=== PATIENT | female | born 1940 | race Caucasian/White ===

== ENCOUNTER 2022-02-11 14:56 | Inpatient (IN) | payer MEDICARE, BC, SELFPAY ==
[2022-02-11] VITALS (11 sets, daily range): BP systolic 123–156; BP diastolic 71–87; PULSE 67–78; RESP 16–20; TEMP 36.8–37.1; O2SAT 89–94; BMI 30.2; BMI 32.0
--- NOTE | 2022-02-11 15:29 | CRLHL7_ITS ---
For Patients: As a result of the Century Cures Act, medical imaging exams and procedure reports are released immediately into your electronic medical record. You may view this report before your referring provider. If you have questions, please contact your health care provider. INDICATION: Cough, hypoxia. TECHNIQUE: Chest 1 views. COMPARISON: Chest x-ray from 11/18/2021. FINDINGS: Lungs: Evaluation is limited by over penetration. No focal consolidation. Pleura: No pleural effusion or pneumothorax. Heart and Mediastinum: The cardiomediastinal silhouette is normal. The vessels are unremarkable. Stable hiatal hernia. Bones: Unremarkable. IMPRESSION: No acute cardiopulmonary disease. Dictated by Yousuf Hi MD @ 02/11/2022 4:14:36 PM (Electronically Signed)
--- NOTE | 2022-02-11 15:31 | ED_ITS ---
HPI - General Adult General Chief complaint: Shortness of Breath/Dyspnea Stated complaint: Cold Symptoms Low O2 Time Seen by Provider: 02/11/22 15:15 History of Present Illness HPI narrative: This 81-year-old female comes in from clinic where she presented for symptoms of cough and shortness of breath. She was noted to have oximetry at 85% on room air and was sent here for further evaluation and treatment. The patient states that symptoms began 3 days ago. She has had coughing and did have some diaphoresis last night. She did not measure her temperature. She states that she had pneumonia couple months ago and was sent home with antibiotic treatments. She improved and recovered from that. She lives alone at home. She quit smoking almost 40 years ago. Related Data Home Medications Medication Instructions Recorded Confirmed alendronate 70 mg tablet mg PO 02/11/22 amlodipine 5 mg tablet mg 02/11/22 anastrozole 1 mg tablet mg 02/11/22 ferrous sulfate 325 mg (65 mg mg 02/11/22 iron) tablet (FeroSul) levothyroxine 137 mcg tablet mcg 02/11/22 levothyroxine 150 mcg tablet mcg 02/11/22 mometasone-formoterol HFA 200 inhalation 02/11/22 mcg-5 mcg/actuation aerosol inhaler (Dulera) rivaroxaban 20 mg tablet (Xarelto) mg 02/11/22 triamcinolone acetonide 0.5 % applic topical 02/11/22 topical cream Allergies Allergy/AdvReac Type Severity Reaction Status Date / Time latex Allergy Intermediate Hives Uncoded 02/11/22 15:09 Review of Systems Status of ROS: Reports: 10 or more systems reviewed and unremarkable except as noted in History and below Narrative: Constitutional: No fevers, no weight gain or loss. Eyes: No discharge. No vision changes. HENT: No congestion, no sore throat, no ear pain. Cardiovascular: No chest pain, no palpitations. Respiratory: No wheezes. Coughing with shortness of breath. Gastrointestinal: No abdominal pain, no vomiting, no diarrhea. Genitourinary: No dysuria, no hematuria. Musculoskeletal: Normal range of motion. Skin: No rashes, no pruritis. Neurological: No dizziness, weakness, sensory change, speech change. Endo/Heme/Allergies: No bruising or bleeding. No polydipsia. Pysch: no suicidality, no anxiety, no insomnia. All other systems reviewed and are negative. [facility] Medical History (Updated 02/11/22 @ 18:48 by Chaparro Lanza MD) Arrhythmia Hypertension Hypothyroid Social History Smoking Status: Former smoker What tobacco products do you use: cigarettes Smoking quit date/years: >15 years ago Do you use any of these nicotine containing products: None Second hand tobacco smoke exposure: No How often do you have a drink containing alcohol: 2-4 times a month How often do you have six or more drinks on one occasion: Never AUDIT-C Alcohol total score: 2 Non-prescribed substance use: denies use service: No Exam Narrative: Exam Narrative: Constitutional: Well-developed, well-nourished, no acute distress. HEENT: Normocephalic, atraumatic. Neck: Normal range of motion. Nontender. Supple. Heart: Regular. No murmurs. Normal rate. Intact distal pulses. Lungs: Clear to auscultation. No chest discomfort. No wheezes, rhonchi, or rales. No use of accessory muscles for breathing. Abdomen: Normal bowel sounds. Nontender. No rebound tenderness. Genitalia: Deferred. Back: No midline tenderness. Normal range of motion. Extremities: Normal range of motion. No injury. Skin: Intact. No rash. Warm. No erythema or pallor. Neurologic: No altered sensation. No weakness. Alert and oriented. Psychiatric: No suicidality. No anxiety or depression. No insomnia. Nursing notes and vitals signs are reviewed. Const: Vital Signs, click to edit/add: Vital Signs - 24 hr 02/11/22 15:02 02/11/22 16:29 02/11/22 17:45 Temperature 98.7 F Pulse Rate [Pulse Oximeter] 78 67 Respiratory Rate 20 18 20 Blood Pressure [Ri ght Upper Arm] 156/75 H 150/71 H 123/86 Pulse Oximetry 89 92 92 Oxygen Delivery Me thod Room Air Nasal Cannula Nasal Cannula 02/11/22 18:30 Temperature Pulse Rate [Pulse Oximeter] 71 Respiratory Rate 20 Blood Pressure [Ri ght Upper Arm] 143/73 H Pulse Oximetry 93 Oxygen Delivery Me thod Nasal Cannula Course Vital Signs Vital signs: Initial Vital Signs Temperature 98.7 F 02/11/22 15:02 Temperature Source Temporal Artery Scan 02/11/22 15:02 Pulse Rate 78 02/11/22 15:02 Pulse Rhythm 02/11/22 15:02 Respiratory Rate 20 02/11/22 15:02 Blood Pressure 156/75 H 02/11/22 15:02 Blood Pressure Mean 102 02/11/22 15:02 Blood Pressure Position Supine 02/11/22 15:02 Pulse Oximetry 89 02/11/22 15:02 Oxygen Delivery Method 02/11/22 15:02 Vital Signs Temperature 98.7 F 02/11/22 15:02 Pulse Rate 78 02/11/22 15:02 Respiratory Rate 20 02/11/22 15:02 Blood Pressure 156/75 H 02/11/22 15:02 Pulse Oximetry 89 02/11/22 15:02 Oxygen Delivery Method 02/11/22 15:02 Temperature 98.7 F 02/11/22 15:02 Pulse Rate 71 02/11/22 18:30 Respiratory Rate 20 02/11/22 18:30 Blood Pressure 143/73 H 02/11/22 18:30 Pulse Oximetry 93 02/11/22 18:30 Oxygen Delivery Method 02/11/22 18:30 Medical Decision Making MDM Narrative Medical decision making narrative: This patient presents with cough and shortness of breath over the past 3 days. She has oximetry at 85% on room air. With nasal cannula oxygen at 2.5 Lher oximetry is around 90-92%. chest x-ray and labs returned with reassuring findings. the patient continues to benefit from nasal cannula oxygen. A CT scan of the chest without contrast was done which showed bilateral patchy opacities that are suggestive of an atypical infiltrate. I spoke with the hospital physician on-call, Dr. Osborn, who agrees to bring her into the hospital. He requested she receive IV Zosyn and Zithromax. Lab Data Labs: Lab Results 02/11/22 02/11/22 02/11/22 Range/Units 15:29 15:29 15:29 WBC 10.90 (4.50-11.00) K/uL RBC 4.28 (4.00-5.20) m/uL Hgb 13.3 (12.0-16.0) gm/dL Hct 40.9 (33.0-51.0) % MCV 96 (80-100) fL MCH 31 (26-34) pg MCHC 33 (32-36) gm/dL RDW Coeff of Chris 13.1 (11.5-15.5) % Plt Count 159 (140-440) K/uL Neut % (Auto) 79.2 H (42.0-72.0) % Lymph % (Auto) 10.3 L (20-44) % Mason % (Auto) 9.5 (0.0-11.0) % Eos % (Auto) 0.2 (0.0-7.0) % Baso % (Auto) 0.2 (0.0-3.0) % Neut # (Auto) 8.60 H (1.7-7.0) K/uL Lymph # (Auto) 1.10 (0.90-2.90) K/uL Mason # (Auto) 1.00 H (0.00-0.90) K/UL Eos # (Auto) 0.02 (0.00-0.50) K/uL Baso # (Auto) 0.02 (0.00-0.30) K/uL Abs Immat Gran (auto) 0.07 (0.00-0.30) K/uL D-Dimer Quant (PE/DVT) 0.27 (0.00-0.50) ug/ml Sodium 137 (135-149) mmol/L Potassium 3.7 (3.6-5.1) mmol/L Chloride 101 (96-114) mmol/L Carbon Dioxide 29 (20-32) mmol/L BUN 16 (7-30) mg/dL Creatinine 0.9 (0.5-1.5) mg/dL Estimated Creat Clear 33.86 Estimated GFR 65 ml/min Glucose 114 (60-115) mg/dL Lactate (0.5-1.9) mmol/L Calcium 8.9 (8.4-10.6) mg/dL SARS-CoV-2 (PCR) (Negative) Influenza Type A (PCR) (Negative) Influenza Type B (PCR) (Negative) POC Troponin I (0.01-0.04) ng/ml 02/11/22 02/11/22 02/11/22 Range/Units 15:29 15:29 15:40 WBC (4.50-11.00) K/uL RBC (4.00-5.20) m/uL Hgb (12.0-16.0) gm/dL Hct (33.0-51.0) % MCV (80-100) fL MCH (26-34) pg MCHC (32-36) gm/dL RDW Coeff of Chris (11.5-15.5) % Plt Count (140-440) K/uL Neut % (Auto) (42.0-72.0) % Lymph % (Auto) (20-44) % Mason % (Auto) (0.0-11.0) % Eos % (Auto) (0.0-7.0) % Baso % (Auto) (0.0-3.0) % Neut # (Auto) (1.7-7.0) K/uL Lymph # (Auto) (0.90-2.90) K/uL Mason # (Auto) (0.00-0.90) K/UL Eos # (Auto) (0.00-0.50) K/uL Baso # (Auto) (0.00-0.30) K/uL Abs Immat Gran (auto) (0.00-0.30) K/uL D-Dimer Quant (PE/DVT) (0.00-0.50) ug/ml Sodium (135-149) mmol/L Potassium (3.6-5.1) mmol/L Chloride (96-114) mmol/L Carbon Dioxide (20-32) mmol/L BUN (7-30) mg/dL Creatinine (0.5-1.5) mg/dL Estimated Creat Clear Estimated GFR ml/min Glucose (60-115) mg/dL Lactate 0.8 (0.5-1.9) mmol/L Calcium (8.4-10.6) mg/dL SARS-CoV-2 (PCR) Negative SARS-CoV-2 (Negative) Influenza Type A (PCR) Negative PCR FLU A (Negative) Influenza Type B (PCR) Negative PCR FLU B (Negative) POC Troponin I 0.00 L (0.01-0.04) ng/ml Imaging Data Chest x-ray: Radiologist's impression: No acute cardiopulmonary disease. CT scan - chest: Radiologist's impression: Patchy nodular opacities in the lower lobes have an appearance suggestive of atypical infection. Chronic changes or inflammatory etiologies are also possible. ECG Data Attestation: I personally reviewed and interpreted this ECG as follows: Interpretation: Normal sinus rhythm. Rate 66 bpm. There are no specific ST or T-wave abnormalities. Discharge Plan Discharge Clinical Impression: Hypoxia, Pneumonia Prescriptions: No Action anastrozole 1 mg tablet Label Comments: TAKE ONE TABLET BY MOUTH ONE TIME DAILY levothyroxine 137 mcg tablet Label Comments: TAKE ONE TABLET BY MOUTH ONE TIME DAILY BEFORE BREAKFAST triamcinolone acetonide 0.5 % cream TOPICAL Label Comments: apply topically to affected area (leg spots) twice daily until resolved. alendronate 70 mg tablet PO Label Comments: TAKE 1 TABLET BY MOUTH ONCE WEEKLY ON AN EMPTY STOMACH WITH A BIG GLASS OF WATER. DO NOT LIE DOWN FOR 60 MINUTES AFTERWARDS. amlodipine 5 mg tablet Label Comments: TAKE ONE TABLET BY MOUTH ONE TIME DAILY ferrous sulfate [FeroSul] 325 mg (65 mg iron) tablet Label Comments: TAKE 1 TABLET BY MOUTH EVERY OTHER DAY. levothyroxine 150 mcg tablet Label Comments: TAKE ONE TABLET BY MOUTH ONE TIME DAILY BEFORE BREAKFAST Dulera 200-5 mcg/actuation HFA aerosol inhaler INHALATION Label Comments: INHALE TWO PUFFS BY MOUTH TWICE DAILY Xarelto 20 mg tablet Label Comments: TAKE ONE TABLET BY MOUTH ONE TIME DAILY WITH EVENING MEAL. Follow Up/Referrals: Zelda Samuels DO [Primary Care Provider] -
[2022-02-11 16:01] LABS: Lactate* 0.8 mmol/L (0.5-1.9)
[2022-02-11 16:05] LABS: Basophils Absolute Auto 0.02 K/uL (0.00-0.30); Basophils Percent Auto 0.2 % (0.0-3.0); Eosinophils Absolute Auto 0.02 K/uL (0.00-0.50); Eosinophils Percent Auto 0.2 % (0.0-7.0); Hematocrit 40.9 % (33.0-51.0); Hemoglobin* 13.3 gm/dL (12.0-16.0); Immature Granulocytes Abs Auto 0.07 K/uL (0.00-0.30); Lymphocytes Percent Auto 10.3 % (20-44); Mean Corpuscular HGB Conc 33 gm/dL (32-36); Mean Corpuscular Hemoglobin 31 pg (26-34); Mean Corpuscular Volume 96 fL (80-100); Monocytes Percent Auto 9.5 % (0.0-11.0); Neutrophils Percent Auto 79.2 % (42.0-72.0); Platelet Count* 159 K/uL (140-440); RDW Coefficient of Variation % 13.1 % (11.5-15.5); Red Blood Count 4.28 m/uL (4.00-5.20)
[2022-02-11 16:12] LABS: Slide Review Reflex No
[2022-02-11 16:23] LABS: D Dimer Quantitative* 0.27 ug/ml (0.00-0.50)
[2022-02-11 16:24] LABS: Chloride* 101 mmol/L (96-114); Potassium* 3.7 mmol/L (3.6-5.1); Sodium* 137 mmol/L (135-149)
[2022-02-11 16:26] LABS: Creatinine* 0.9 mg/dL (0.5-1.5); Est. Creatinine Clearance* 33.86; Estimated Glomerular Filt Rate 65 ml/min
[2022-02-11 16:27] LABS: Blood Urea Nitrogen* 16 mg/dL (7-30); Calcium* 8.9 mg/dL (8.4-10.6); Carbon Dioxide* 29 mmol/L (20-32); Glucose* 114 mg/dL (60-115)
[2022-02-11 16:45] LABS: PCR FLU A Negative PCR FLU A (Negative); PCR FLU B Negative PCR FLU B (Negative)
[2022-02-11 16:58] LABS: SARS PCR* Negative SARS-CoV-2 (Negative)
--- NOTE | 2022-02-11 17:03 | CRLHL7_ITS ---
For Patients: As a result of the Century Cures Act, medical imaging exams and procedure reports are released immediately into your electronic medical record. You may view this report before your referring provider. If you have questions, please contact your health care provider. INDICATION: Hypoxia. TECHNIQUE: CT chest without contrast. Coronal and sagittal reformats were generated. COMPARISON: None. FINDINGS: Thyroid: Unremarkable. Thoracic lymph nodes: No enlarged supraclavicular, mediastinal, hilar, or axillary lymph nodes. Mediastinum and esophagus: Moderate-sized sliding hiatal hernia. Heart and vasculature: Unremarkable. Lungs: Patchy nodular densities primarily in the lower lobes. Mild bilateral cylindrical bronchiectasis. Pleura: Unremarkable. Chest wall: Unremarkable. Upper abdomen: No significant findings. Bones: Unremarkable for age. IMPRESSION: Patchy nodular opacities in the lower lobes have an appearance suggestive of atypical infection. Chronic changes or inflammatory etiologies are also possible. Please note that all CT scans at this facility use dose modulation, iterative reconstruction, and/or weight-based dosing when appropriate to reduce radiation dose to as low as reasonably achievable. Dictated by Yousuf Hi MD @ 02/11/2022 5:52:19 PM (Electronically Signed)
--- NOTE | 2022-02-11 19:08 | W.PC.EDHO ---
Primary Language: Preferred Language: Orientation Status: [x] Alert & Oriented [] Slight Confusion [] Known Dx Dementia Transfers By: [x] Assist of 1 [] Assist of 2 [] Lift Description of Symptoms ED Triage Present Problem Patient was seen at the [facility] today and Description was sent over for low oxygen saturation - 84-85%. She states that she does feel weak and tired with a deep cough, and sneezing. Denies fever, nausea and vomiting. States she had pneumonia 2 months ago. Female History Patient No IV Insertion/Site Date of IV Line Insertion [ 02/11/22 Right Antecubital] Oxygen Administration Pulse Oximetry 93 Pulse Oximetry 92 Pulse Oximetry 92 Pulse Oximetry 89 Oxygen Delivery Method Nasal Cannula Oxygen Delivery Method Nasal Cannula Oxygen Delivery Method Nasal Cannula Oxygen Delivery Method Room Air Cardiac Monitoring EKG Method Bedside
[2022-02-11] MEDS: PIPERACILLIN/TAZOBACTAM 3.375 GM in 0.9 % SODIUM CHLORIDE Mini-bag 100 ML IVPB (19:11)
[2022-02-11] MEDS: AZITHROMYCIN 100 MG/ML inj 500 MG IVPB (20:00)
--- NOTE | 2022-02-11 21:37 | P.IMHP_ITS ---
Hospitalist- H&P: HPI History of Present Illness Date Seen: 02/11/22 Chief complaint: Cold Symptoms Low O2 Narrative: Apryl Mckinney is a 81 year old female who presents to the ED with 2-3 days of cough and shortness of breath. She has a history of asthma and has been having more wheezing lately as well. No chest pain. Due to the cough and shortness of breath getting worse, the pt went to the clinic today and had an oxygen saturation of 85%. Pt was then transported to the emergenc room where inital chest x ray was unremarkable. D-dimer was negative but CT of the chest showed patchy nodular opacities in the lower lobes consistant with infection. EKG showed no acute abnormalities and troponin was negative. Blood cultures were collected, pt was placed on supplemental oxygen and treated with Zosyn plus Zithromax. She was subsequently admitted. Pt has had no fever. Review of Systems Status of ROS: Reports: 10 or more systems reviewed and unremarkable except as noted in History and below [facility] Medical History Asthma Atrial fibrillation Breast cancer Hypertension Hypothyroidism Osteoporosis Social History Highest level of school completed/degree received: high school graduate Smoking Status: Former smoker What tobacco products do you use: cigarettes Smoking quit date/years: >15 years ago Do you use any of these nicotine containing products: None Second hand tobacco smoke exposure: No How often do you have a drink containing alcohol: 2-4 times a month Alcohol type: beer How often do you have six or more drinks on one occasion: Never AUDIT-C Alcohol total score: 2 Non-prescribed substance use: denies use Caffeine: Yes service: No Meds Home Medications and Allergies Home Medications Medication Instructions Recorded Confirmed Type alendronate 70 mg tablet mg PO 02/11/22 History amlodipine 5 mg tablet mg 02/11/22 History anastrozole 1 mg tablet mg 02/11/22 History ferrous sulfate 325 mg (65 mg mg 02/11/22 History iron) tablet (FeroSul) levothyroxine 137 mcg tablet mcg 02/11/22 History levothyroxine 150 mcg tablet mcg 02/11/22 History mometasone-formoterol HFA 200 inhalation 02/11/22 History mcg-5 mcg/actuation aerosol inhaler (Dulera) rivaroxaban 20 mg tablet (Xarelto) mg 02/11/22 History triamcinolone acetonide 0.5 % applic topical 02/11/22 History topical cream Home Medication Comments: Reviewed Allergies Allergy/AdvReac Type Severity Reaction Status Date / Time latex Allergy Intermediate Hives Uncoded 02/11/22 15:09 Exam Narrative: Exam Narrative: EXAM GENERAL: Patient appears comfortable breathing oxygen per NC EYES: No scleral icterus. THYROID: no thyroid nodules or thyromegaly. LYMPH: No supraclavicular or cervical lymphadenopathy. SKIN: Visible skin seen during exam normal or with benign process only. EXT: No dependent lower extremity pedal edema. HEART: Regular rate and rhythm with no murmurs, rubs, or gallops. LUNGS: Mild expiratory wheezes with rhonchi in the bases ABD: Soft, non tender, non distended. PSYCH: Good eye contact, speech is not pressured. Const: Vital Signs, click to edit/add: Vital Signs - 24 hr 02/11/22 15:02 02/11/22 16:29 02/11/22 17:45 Temperature 98.7 F Pulse Rate [Pulse Oximeter] 78 67 Respiratory Rate 20 18 20 Blood Pressure [Ri ght Upper Arm] 156/75 H 150/71 H 123/86 Pulse Oximetry 89 92 92 Oxygen Delivery Me thod Room Air Nasal Cannula Nasal Cannula Oxygen Flow Rate 02/11/22 18:30 02/11/22 21:22 Temperature 98.2 F Pulse Rate [Pulse Oximeter] 71 Respiratory Rate 20 16 Blood Pressure [Ri ght Upper Arm] 143/73 H Pulse Oximetry 93 92 Oxygen Delivery Me thod Nasal Cannula Nasal Cannula Oxygen Flow Rate 5 Hospitalist - H&P: Result Labs Labs: Short CBC 02/11/22 Range/Units 15:29 WBC 10.90 (4.50-11.00) K/uL Hgb 13.3 (12.0-16.0) gm/dL Hct 40.9 (33.0-51.0) % Plt Count 159 (140-440) K/uL BMP 02/11/22 15:29 Sodium 137 Potassium 3.7 Chloride 101 Carbon Dioxide 29 BUN 16 Creatinine 0.9 Glucose 114 Calcium 8.9 Assessment and Plan Assessment and plan (1) Pneumonia: Status: Acute Assessment and Plan: Pt's blood has been cultured and she has been started on Zosyn plus Zithromax due to the atypical appearance on CT. I have requested ABGs. No signs of PE, unstable angina or CHF. Pt does have asthma which may complicate her progress. Will add Duonebs and Solumedrol. Pt is to be a full code. (2) Asthma: Status: Acute Assessment and Plan: Continue Dulera and add Duonebs and Solumedrol. (3) Atrial fibrillation: Status: Acute Assessment and Plan: Place pt on tele. Rate is controlled. Continue Riveroxaban. (4) Breast cancer: Status: Chronic Assessment and Plan: Pt will continue to follow up with Oncology as an outpt. (5) Osteoporosis: Status: Chronic Assessment and Plan: Continue to treat as an outpt (6) Hypertension: Status: Chronic Assessment and Plan: Pt's blood pressure stable. Will continue Amlodipine. (7) Hypothyroidism: Status: Chronic Assessment and Plan: Pt tells me that she recently had her Synthroid dose increased to 150 micrograms per day which we will continue.
[2022-02-11 22:06] LABS: ABG PCO2 41 mmHG (35-45); Base Excess ABG 2.2 mmol/L (-3.0-3.0); HCO3 ABG 27 mmol/L (21-28); Oxygen Saturation ABG 91 % (92-100); PO2 ABG 60.3 mmHG (80-105); TCO2 ABG 24 mmol/l (21-30); pH ABG 7.42 (7.35-7.45)
[2022-02-11] MEDS: METHYLPREDNISOLONE SOD SUCC 40 MG/ML IVP (22:26)
[2022-02-11] MEDS: IPRAT-ALBUT 0.5-2.5 MG/3 ML NEB 1 NEB IH (22:26)
[2022-02-12] VITALS (8 sets, daily range): BP systolic 116–136; BP diastolic 69–85; PULSE 59–93; RESP 16; TEMP 36.4–37; O2SAT 92–93
[2022-02-12] MEDS: PIPERACILLIN/TAZOBACTAM 3.375 GM in 0.9 % SODIUM CHLORIDE Mini-bag 100 ML IVPB ×4 (01:58→21:11)
[2022-02-12] MEDS: ALBUTEROL SULFATE 2.5 MG/3 ML VIAL.NEB NEB (01:58)
[2022-02-12] MEDS: IPRAT-ALBUT 0.5-2.5 MG/3 ML NEB 1 NEB IH ×3 (03:56→21:45)
--- NOTE | 2022-02-12 06:36 | PC.NURSE ---
Alert and oriented x4. admitted last night due to pneumonia. Vitals stable. Hard of hearing; hearing devices intentionally left at home. Upper and lower partial dentures present in the room. On 4L of Oxygen overnight. Nebs administered as per orders including PRN 's due to increased need for O2. Crackly lung sounds Ambulating self in the room independently. Denies pain. No further concerns noted
[2022-02-12 06:41] LABS: Hematocrit 39.4 % (33.0-51.0); Hemoglobin* 12.8 gm/dL (12.0-16.0); Immature Granulocytes Abs Auto 0.03 K/uL (0.00-0.30); Lymphocytes Percent Auto 3.6 % (20-44); Mean Corpuscular HGB Conc 33 gm/dL (32-36); Mean Corpuscular Hemoglobin 31 pg (26-34); Mean Corpuscular Volume 95 fL (80-100); Monocytes Percent Auto 1.5 % (0.0-11.0); Neutrophils Percent Auto 94.7 % (42.0-72.0); Platelet Count* 135 K/uL (140-440); RDW Coefficient of Variation % 12.7 % (11.5-15.5); Red Blood Count 4.13 m/uL (4.00-5.20); White Blood Count* 12.91 K/uL (4.50-11.00)
[2022-02-12 06:43] LABS: Slide Review Reflex No
[2022-02-12 07:05] LABS: Chloride* 104 mmol/L (96-114); Sodium* 137 mmol/L (135-149)
[2022-02-12 07:08] LABS: Blood Urea Nitrogen* 14 mg/dL (7-30); Carbon Dioxide* 23 mmol/L (20-32); Creatinine* 0.6 mg/dL (0.5-1.5); Est. Creatinine Clearance* 32.23; Estimated Glomerular Filt Rate 91 ml/min
[2022-02-12 07:09] LABS: Calcium* 8.3 mg/dL (8.4-10.6); Glucose* 150 mg/dL (60-115)
[2022-02-12 07:11] LABS: C Reactive Protein* 7.9 mg/dL (0.5-1.0)
--- NOTE | 2022-02-12 07:57 | P.IMPN_ITS ---
Progress Note: A&P Assessment and plan (1) Acute respiratory failure with hypoxia: Status: Acute Assessment and Plan: Taper supplemental oxygen as tolerated. RT referral placed. (2) Pneumonia: Problem details: Started on Zosyn and azithromycin 02/11 Status: Acute Assessment and Plan: Continue antibiotics. (3) Asthma: Problem details: Mild intermittent per history. Never hospitalized or intubated. Status: Acute Assessment and Plan: Given one dose of steroids on admission, will not continue steroids at this time given no evidence of wheezing (low threshold to restart if status were to change). Will continue home Mometasone-Formoterol inhaler. (4) Atrial fibrillation: Problem details: Paroxysmal Status: Acute Assessment and Plan: Sinus rhythm today. Continue rivaroxaban. (5) Hypertension: Status: Chronic Assessment and Plan: Continue home medications. (6) Hypothyroidism: Status: Chronic Assessment and Plan: Continue levothyroxine. Plan 81-year-old female, admitted for acute hypoxic respiratory failure in the setting of pneumonia. Continue antibiotics per above. Continue home medications for comorbidities. Patient would prefer to go home without supplemental oxygen; we will continue antibiotics and taper oxygen as tolerated. Rivaroxaban for prophylaxis. Discussed that she may want to see pulmonology as an outpatient after hospital stay, given her illness and history of asthma. Time Spent With Patient Total time spent: 35, greater than 50% on chart review and coordination of care Subjective Date Seen: 02/12/22 Interval history: Apryl is feeling better today. No chest pain. Dyspnea has improved. She is tolerating p.o. intake, has not ambulated much since admission. She continues to require supplemental oxygen. Exam Narrative: Exam Narrative: GEN: Alert and oriented, speaking in full sentences HEENT: Normal external ears, EOMIs bilaterally CV: RRR, No concerning murmurs, rubs, or gallops R: LCTA bilaterally without wheezing. Ext: wwp, no concerning edema Skin: No concerning skin lesions or rashes on exposed skin Neuro: Nonfocal Psych: Appropriate Const: Vital Signs, click to edit/add: Vital Signs - 24 hr 02/11/22 15:02 02/11/22 16:29 02/11/22 17:45 Temperature 98.7 F Pulse Rate Pulse Rate [Bilate ral Dorsalis Pedis ] Pulse Rate [Pulse Oximeter] 78 67 Respiratory Rate 20 18 20 Blood Pressure [Ri ght Arm] Blood Pressure [Ri ght Upper Arm] 156/75 H 150/71 H 123/86 Pulse Oximetry 89 92 92 Oxygen Delivery Me thod Room Air Nasal Cannula Nasal Cannula Oxygen Flow Rate 02/11/22 18:30 02/11/22 21:22 02/11/22 21:56 Temperature 98.2 F Pulse Rate Pulse Rate [Bilate ral Dorsalis Pedis ] Pulse Rate [Pulse Oximeter] 71 Respiratory Rate 20 16 16 Blood Pressure [Ri ght Arm] Blood Pressure [Ri ght Upper Arm] 143/73 H Pulse Oximetry 93 92 92 Oxygen Delivery Me thod Nasal Cannula Nasal Cannula Nasal Cannula Oxygen Flow Rate 5 5 02/11/22 21:56 02/11/22 22:40 02/11/22 22:53 Temperature 98.2 F Pulse Rate 73 Pulse Rate [Bilate ral Dorsalis Pedis ] Pulse Rate [Pulse Oximeter] 77 Respiratory Rate 16 16 Blood Pressure [Ri ght Arm] 149/87 H Blood Pressure [Ri ght Upper Arm] Pulse Oximetry 92 94 Oxygen Delivery Me thod Nasal Cannula Nasal Cannula Oxygen Flow Rate 5 4 02/11/22 22:55 02/11/22 23:00 02/11/22 23:36 Temperature 98.6 F Pulse Rate Pulse Rate [Bilate ral Dorsalis Pedis ] 77 Pulse Rate [Pulse Oximeter] 77 Respiratory Rate 16 16 Blood Pressure [Ri ght Arm] 150/81 H Blood Pressure [Ri ght Upper Arm] Pulse Oximetry 94 94 Oxygen Delivery Me thod Nasal Cannula Nasal Cannula Oxygen Flow Rate 4 4 02/12/22 03:00 Temperature 98.6 F Pulse Rate Pulse Rate [Bilate ral Dorsalis Pedis ] 68 Pulse Rate [Pulse Oximeter] Respiratory Rate 16 Blood Pressure [Ri ght Arm] 136/76 Blood Pressure [Ri ght Upper Arm] Pulse Oximetry 93 Oxygen Delivery Me thod Nasal Cannula Oxygen Flow Rate 4 Labs Labs: Laboratory Results - last 24 hr 02/11/22 02/11/22 02/11/22 15:29 15:29 15:29 WBC 10.90 RBC 4.28 Hgb 13.3 Hct 40.9 MCV 96 MCH 31 MCHC 33 RDW Coeff of Chris 13.1 Plt Count 159 Neut % (Auto) 79.2 H Lymph % (Auto) 10.3 L [place] % (Auto) 9.5 Eos % (Auto) 0.2 Baso % (Auto) 0.2 Neut # (Auto) 8.60 H Lymph # (Auto) 1.10 [place] # (Auto) 1.00 H Eos # (Auto) 0.02 Baso # (Auto) 0.02 Abs Immat Gran (auto) 0.07 D-Dimer Quant (PE/DVT) 0.27 ABG pH ABG pCO2 ABG pO2 ABG HCO3 ABG Total CO2 ABG O2 Saturation ABG Base Excess Sodium 137 Potassium 3.7 Chloride 101 Carbon Dioxide 29 BUN 16 Creatinine 0.9 Estimated Creat Clear 33.86 Estimated GFR 65 Glucose 114 Lactate Calcium 8.9 C-Reactive Protein SARS-CoV-2 (PCR) Influenza Type A (PCR) Influenza Type B (PCR) POC Troponin I 02/11/22 02/11/22 02/11/22 15:29 15:29 15:40 WBC RBC Hgb Hct MCV MCH MCHC RDW Coeff of Chris Plt Count Neut % (Auto) Lymph % (Auto) [place] % (Auto) Eos % (Auto) Baso % (Auto) Neut # (Auto) Lymph # (Auto) [place] # (Auto) Eos # (Auto) Baso # (Auto) Abs Immat Gran (auto) D-Dimer Quant (PE/DVT) ABG pH ABG pCO2 ABG pO2 ABG HCO3 ABG Total CO2 ABG O2 Saturation ABG Base Excess Sodium Potassium Chloride Carbon Dioxide BUN Creatinine Estimated Creat Clear Estimated GFR Glucose Lactate 0.8 Calcium C-Reactive Protein SARS-CoV-2 (PCR) Negative SARS-CoV-2 Influenza Type A (PCR) Negative PCR FLU A Influenza Type B (PCR) Negative PCR FLU B POC Troponin I 0.00 L 02/11/22 02/12/22 02/12/22 22:00 06:12 06:12 WBC 12.91 H RBC 4.13 Hgb 12.8 Hct 39.4 MCV 95 MCH 31 MCHC 33 RDW Coeff of Chris 12.7 Plt Count 135 L Neut % (Auto) 94.7 H Lymph % (Auto) 3.6 L [place] % (Auto) 1.5 Eos % (Auto) 0.0 Baso % (Auto) 0.0 Neut # (Auto) 12.20 H Lymph # (Auto) 0.50 L [place] # (Auto) 0.20 Eos # (Auto) 0.00 Baso # (Auto) 0.00 Abs Immat Gran (auto) 0.03 D-Dimer Quant (PE/DVT) ABG pH 7.42 ABG pCO2 41 ABG pO2 60.3 L ABG HCO3 27 ABG Total CO2 24 ABG O2 Saturation 91 L ABG Base Excess 2.2 Sodium 137 Potassium 4.0 Chloride 104 Carbon Dioxide 23 BUN 14 Creatinine 0.6 Estimated Creat Clear 32.23 Estimated GFR 91 Glucose 150 H Lactate Calcium 8.3 L C-Reactive Protein 7.9 H SARS-CoV-2 (PCR) Influenza Type A (PCR) Influenza Type B (PCR) POC Troponin I
[2022-02-12] MEDS: LEVOTHYROXINE 75 MCG TABLET 150 MCG PO (08:18)
[2022-02-12] MEDS: RIVAROXABAN 10 MG TABLET 20 MG PO (08:20)
[2022-02-12] MEDS: AMLODIPINE 5 MG TABLET PO (08:20)
--- NOTE | 2022-02-12 10:44 | RESP.RT ---
Patient currently on 5L NC and SATing 92%. Patient is not able to have a productive cough, but is working with the [employer] independently.
--- NOTE | 2022-02-12 18:48 | PC.NURSE ---
Patient requiring oxygen via nasal cannula this shift. Pt on 3-4 Liters of oxygen via NC and sating in the 90's. Patient up to the bathroom with SBA. Using Aer[employer] frequently throughout the day and coughing after treatment. Pt denies pain.
[2022-02-12] MEDS: AZITHROMYCIN 500 MG in 0.9 % SODIUM CHLORIDE 250 ml 250 ML 255 MG IVPB (19:58)
[2022-02-13] VITALS (8 sets, daily range): BP systolic 119–151; BP diastolic 70–89; PULSE 67–90; RESP 16; TEMP 36.4–37.2; O2SAT 90–93
[2022-02-13] MEDS: PIPERACILLIN/TAZOBACTAM 3.375 GM in 0.9 % SODIUM CHLORIDE Mini-bag 100 ML IVPB ×4 (01:38→20:37)
--- NOTE | 2022-02-13 04:45 | PC.NURSE ---
Pt rested well this night. Stable on feet. O2 Remained low 90s on 3L NC. Afebrile. LS slightly coarse
[2022-02-13] MEDS: LEVOTHYROXINE 75 MCG TABLET 150 MCG PO (06:36)
[2022-02-13 06:59] LABS: Basophils Percent Auto 0.1 % (0.0-3.0); Eosinophils Percent Auto 0.1 % (0.0-7.0); Hematocrit 36.9 % (33.0-51.0); Hemoglobin* 12.1 gm/dL (12.0-16.0); Immature Granulocytes Abs Auto 0.03 K/uL (0.00-0.30); Lymphocytes Percent Auto 6.4 % (20-44); Mean Corpuscular HGB Conc 33 gm/dL (32-36); Mean Corpuscular Hemoglobin 31 pg (26-34); Mean Corpuscular Volume 95 fL (80-100); Monocytes Percent Auto 6.7 % (0.0-11.0); Neutrophils Percent Auto 86.5 % (42.0-72.0); Platelet Count* 156 K/uL (140-440); RDW Coefficient of Variation % 12.8 % (11.5-15.5); Red Blood Count 3.87 m/uL (4.00-5.20)
[2022-02-13 07:08] LABS: Slide Review Reflex No
[2022-02-13 07:13] LABS: Chloride* 106 mmol/L (96-114); Sodium* 141 mmol/L (135-149)
[2022-02-13 07:14] LABS: Potassium* 3.4 mmol/L (3.6-5.1)
[2022-02-13 07:16] LABS: Blood Urea Nitrogen* 17 mg/dL (7-30); Carbon Dioxide* 29 mmol/L (20-32); Creatinine* 0.7 mg/dL (0.5-1.5); Est. Creatinine Clearance* 32.23; Estimated Glomerular Filt Rate 87 ml/min
[2022-02-13 07:17] LABS: Calcium* 8.1 mg/dL (8.4-10.6); Glucose* 103 mg/dL (60-115)
[2022-02-13] MEDS: RIVAROXABAN 10 MG TABLET 20 MG PO (09:27)
[2022-02-13] MEDS: AMLODIPINE 5 MG TABLET PO (09:28)
[2022-02-13] MEDS: IPRAT-ALBUT 0.5-2.5 MG/3 ML NEB 1 NEB IH ×3 (09:29→21:30)
[2022-02-13] MEDS: POTASSIUM BICARB 25 MEQ EFFERVESCENT TAB PO ×2 (11:59→15:21)
[2022-02-13] MEDS: BENZOCAINE/MENTHOL 1 EACH LOZENGE MUCOUS MEM ×2 (11:59→15:23)
--- NOTE | 2022-02-13 16:52 | P.IMPN_ITS ---
Progress Note: A&P Assessment and plan (1) Community acquired pneumonia: Problem details: Started on Zosyn and azithromycin 02/11 Status: Acute Assessment and Plan: 1. Continue with current antibiotic regimen (2) Acute respiratory failure with hypoxia: Status: Acute Assessment and Plan: 1. Continue with oxygen support (3) Asthma: Problem details: Mild intermittent per history. Never hospitalized or intubated. Status: Acute Assessment and Plan: 1. Continue with bronchodilator therapy. 2. Will add short course of burst corticosteroid therapy. (4) Atrial fibrillation: Problem details: Paroxysmal Status: Acute Assessment and Plan: 1. Continue with supportive efforts. (5) Hypothyroidism: Status: Chronic Assessment and Plan: 1. Continue with supportive efforts. (6) Hypertension: Status: Chronic Assessment and Plan: 1. Continue with supportive efforts. (7) Breast cancer: Status: Chronic (8) Osteoporosis: Status: Chronic Plan 1. Reviewed impression and plans with patient. Answered her questions. 2. Continue monitor closely. 3. Continue to work toward weaning her off of oxygen if at all possible. Subjective Time Seen by Provider: 10:30 Date Seen: 02/13/22 Interval history: 81-year-old woman with baseline asthma presents with community-acquired pneumonia and acute hypoxemic respiratory failure. Initially requiring oxygen supplementation at 6 liters/minute via nasal cannula continuously to maintain saturations of 90% or greater at rest. Now requiring 4 L of oxygen per minute via nasal cannula continues to maintain oxygen saturations of 90% or greater at rest. Feels about the same today as she did yesterday. Overall feels much improved compared to when she 1st presented. Tolerating oral intake. Denies nausea or vomiting. Denies orthostasis, lightheadedness, dizziness, syncope, or near syncope. Denies chest heaviness, pressure, tightness, or pain. Tolerating increased activities today. Exam Narrative: Exam Narrative: Alert, oriented to self, place, time, situation. Articulate. Cooperative. Friendly. Mood and affect are congruent. Lungs with bibasilar rales. Has scattered rhonchi and wheezing as well. Heart tones with regular rhythm, normal S1-S2. Abdomen with active bowel sounds, soft, nontender. Extremities without edema. Independent transfer, station, and gait. Skin is warm, dry, intact. Const: Vital Signs, click to edit/add: Vital Signs - 24 hr 02/12/22 19:34 02/12/22 22:08 02/12/22 22:44 Temperature 97.8 F 97.5 F L Pulse Rate 67 Pulse Rate [Bilate ral Dorsalis Pedis ] Pulse Rate [Pulse Oximeter] 62 66 Respiratory Rate 16 16 Blood Pressure [Ri ght Arm] 124/85 121/73 Pulse Oximetry 93 93 Oxygen Delivery Me thod Nasal Cannula Nasal Cannula Oxygen Flow Rate 3 3 02/12/22 22:46 02/13/22 02:38 02/13/22 08:50 Temperature 97.6 F Pulse Rate 67 Pulse Rate [Bilate ral Dorsalis Pedis ] 66 Pulse Rate [Pulse Oximeter] 66 68 Respiratory Rate 16 16 Blood Pressure [Ri ght Arm] 123/75 Pulse Oximetry 93 Oxygen Delivery Me thod Nasal Cannula Oxygen Flow Rate 3 02/13/22 07:00 02/13/22 07:00 02/13/22 11:00 Temperature 98.1 F 98.4 F Pulse Rate Pulse Rate [Bilate ral Dorsalis Pedis ] Pulse Rate [Pulse Oximeter] 76 76 76 Respiratory Rate 16 16 16 Blood Pressure [Ri ght Arm] 134/75 126/73 Pulse Oximetry 90 90 Oxygen Delivery Me thod Nasal Cannula Nasal Cannula Oxygen Flow Rate 4 4 02/13/22 15:00 02/13/22 15:00 Temperature 98.1 F Pulse Rate Pulse Rate [Bilate ral Dorsalis Pedis ] Pulse Rate [Pulse Oximeter] 90 90 Respiratory Rate 16 16 Blood Pressure [Ri ght Arm] 141/84 H Pulse Oximetry 90 Oxygen Delivery Me thod Nasal Cannula Oxygen Flow Rate 4 Labs Labs: Laboratory Results - last 24 hr 02/13/22 02/13/22 06:20 06:20 WBC 13.70 H RBC 3.87 L Hgb 12.1 Hct 36.9 MCV 95 MCH 31 MCHC 33 RDW Coeff of Chris 12.8 Plt Count 156 Neut % (Auto) 86.5 H Lymph % (Auto) 6.4 L [place] % (Auto) 6.7 Eos % (Auto) 0.1 Baso % (Auto) 0.1 Neut # (Auto) 11.90 H Lymph # (Auto) 0.90 [place] # (Auto) 0.90 Eos # (Auto) 0.00 Baso # (Auto) 0.00 Abs Immat Gran (auto) 0.03 Sodium 141 Potassium 3.4 L Chloride 106 Carbon Dioxide 29 BUN 17 Creatinine 0.7 Estimated Creat Clear 32.23 Estimated GFR 87 Glucose 103 Calcium 8.1 L
--- NOTE | 2022-02-13 19:06 | PC.NURSE ---
Patient still requiring 3-4 L of oxygen via nasal canula to maintain oxygen saturations above 90%. Pt still demonstrates a non-productive cough. Lozenge given to soothe throat and help with cough. Pt using Aerobika - coughing after use. Receiving scheduled nebs. Potassium replaced with effervescent tablets - patient tolerated well.
[2022-02-13] MEDS: AZITHROMYCIN 500 MG in 0.9 % SODIUM CHLORIDE 250 ml 250 ML 255 MG IVPB (19:18)
[2022-02-13] MEDS: guaiFENesin 100 MG/ML CUP PO (20:39)
[2022-02-14] VITALS (13 sets, daily range): BP systolic 105–138; BP diastolic 51–82; PULSE 65–93; RESP 18; TEMP 36.6–37.3; O2SAT 88–94
[2022-02-14] MEDS: PIPERACILLIN/TAZOBACTAM 3.375 GM in 0.9 % SODIUM CHLORIDE Mini-bag 100 ML IVPB ×4 (01:37→20:12)
--- NOTE | 2022-02-14 05:45 | PC.NURSE ---
Pt had to have O2 turned up to 4L overnight to maintain Sats @ 90.
[2022-02-14] MEDS: LEVOTHYROXINE 75 MCG TABLET 150 MCG PO (06:15)
[2022-02-14] MEDS: guaiFENesin 100 MG/ML CUP PO ×3 (06:19→22:18)
[2022-02-14 07:02] LABS: HCO3 VBG 29 mmol/L (21-28); PCO2 VBG 44 mmHG (40-50); PO2 VBG 67.6 mmHG (25-47); pH VBG 7.432 (7.32-7.43)
[2022-02-14 07:10] LABS: Hematocrit 34.8 % (33.0-51.0); Hemoglobin* 11.2 gm/dL (12.0-16.0); Mean Corpuscular HGB Conc 32 gm/dL (32-36); Mean Corpuscular Hemoglobin 31 pg (26-34); Mean Corpuscular Volume 95 fL (80-100); Platelet Count* 155 K/uL (140-440); Red Blood Count 3.66 m/uL (4.00-5.20); White Blood Count* 10.12 K/uL (4.50-11.00)
[2022-02-14 07:17] LABS: Slide Review Reflex No
[2022-02-14 07:32] LABS: Magnesium* 2.1 mg/dL (1.5-2.6)
[2022-02-14 07:50] LABS: Procalcitonin* 0.07 ng/mL (<0.50)
[2022-02-14] MEDS: BENZOCAINE/MENTHOL 1 EACH LOZENGE MUCOUS MEM ×2 (08:07→11:42)
[2022-02-14] MEDS: IPRAT-ALBUT 0.5-2.5 MG/3 ML NEB 1 NEB IH ×3 (08:08→20:12)
[2022-02-14] MEDS: RIVAROXABAN 10 MG TABLET 20 MG PO (08:08)
[2022-02-14 08:12] LABS: NT Pro B Type NatriureticPept* 179 PG/mL (0-450)
[2022-02-14] MEDS: FUROSEMIDE 10 MG/ML inj 20 MG IVP (09:27)
[2022-02-14] MEDS: METOPROLOL TARTRATE 50 MG TABLET PO ×2 (09:27→20:16)
[2022-02-14] MEDS: METOPROLOL TARTRATE 1 MG/ML inj 5 MG IVP (09:41)
--- NOTE | 2022-02-14 15:12 | PM.IMPN1 ---
Progress Note: A&P Assessment and plan (1) Community acquired pneumonia: Problem details: Started on Zosyn and azithromycin 02/11 Status: Acute Assessment and Plan: 1. Continue with IV antibiotics for now. 2. Eventually switched to oral antibiotics. (2) Acute respiratory failure with hypoxia: Status: Acute Assessment and Plan: 1. Oxygen needs appear to be increased today relative to yesterday. Most likely this represents mucus plugging. Differential certainly includes pulmonary embolism, worsening of her pulmonary infiltrative process, heart failure exacerbation, etc.. 2. Will change her oxygen delivery modality to high-flow oxygen with humidification. 3. Consider reimaging with chest CT if warranted. 4. It appears as though she with this new AFib RVR that she is in mild heart failure as well. Will order an echocardiogram. (3) Asthma: Problem details: Mild intermittent per history. Never hospitalized or intubated. Status: Acute Assessment and Plan: 1. Well controlled at this time. (4) Atrial fibrillation: Problem details: Paroxysmal Status: Acute Assessment and Plan: 1. She is not on any rate controlling agent. 2. Metoprolol 5 mg IV x1 dose. 3. Metoprolol 25 mg orally twice daily. 4. Continue with rivaroxaban anticoagulation. (5) Hypothyroidism: Status: Chronic Assessment and Plan: 1. Continue with supportive supplementation. (6) Hypertension: Status: Chronic Assessment and Plan: 1. Stop amlodipine. 2. Change to metoprolol 25 mg p.o. b.i.d.. Consider dose adjustment as warranted. (7) Breast cancer: Status: Chronic (8) Osteoporosis: Status: Chronic Plan 1. Reviewed above with patient. 2. Patient agreeable to above stated plans and recommendations. Time Spent With Patient Total time spent: 40 minutes Subjective Time Seen by Provider: 08:00 Date Seen: 02/14/22 Interval history: Hospital day 4. 81-year-old woman with baseline asthma presented with community-acquired pneumonia and acute hypoxemic respiratory failure. Initially requiring oxygen supplementation at 6 liters/minute via nasal cannula continuously to maintain saturations of 90% or greater at rest. Now requiring 4 L of oxygen per minute via nasal cannula continues to maintain oxygen saturations of 85 % or greater at rest. Feels about the same today as she did yesterday. Tolerating oral intake. Denies nausea or vomiting. Denies orthostasis, lightheadedness, dizziness, syncope, or near syncope. Denies chest heaviness, pressure, tightness, or pain. Tolerating increased activities today. Able to cough but not able to expectorates. Had some sleep last night. Exam Narrative: Exam Narrative: Resting oxygen saturations on 4 L of oxygen per minute via nasal cannula are in mid to upper 80s. When she talks her saturations drop down into the low 80s. Appears comfortable, no acute distress. Alert, oriented to self, place, time, situation. Articulate, cooperative, friendly. Mood and affect are congruent. Midline trachea. Supple neck. No obvious jugular venous distention, hepatojugular reflux, or carotid bruits. Lungs with bibasilar rales but without wheezing or rhonchi today. Heart tones are chaotic today in tachycardic. Abdomen with active bowel sounds, soft, nontender. No CVA tenderness. Mild pretibial edema bilaterally. Skin is intact. Independent in transfer, station, and gait. Const: Vital Signs, click to edit/add: Vital Signs - 24 hr 02/13/22 19:00 02/13/22 22:46 02/13/22 22:47 Temperature 97.9 F 98.9 F Pulse Rate [Pulse Oximeter] 80 80 79 Respiratory Rate 16 16 16 Blood Pressure [Ri ght Arm] 151/89 H 119/70 Pulse Oximetry 92 90 Oxygen Delivery Me thod Nasal Cannula Nasal Cannula Oxygen Flow Rate 3.5 4 Fraction of Inspir ed Oxygen 02/14/22 02:17 02/14/22 07:00 02/14/22 07:00 Temperature 99.2 F 98.1 F Pulse Rate [Pulse Oximeter] 72 93 93 Respiratory Rate 18 18 18 Blood Pressure [Ri ght Arm] 127/75 138/82 Pulse Oximetry 90 88 Oxygen Delivery Me thod Nasal Cannula Nasal Cannula Oxygen Flow Rate 4 4 Fraction of Inspir ed Oxygen 02/14/22 10:40 02/14/22 11:00 02/14/22 12:38 Temperature Pulse Rate [Pulse Oximeter] Respiratory Rate 18 Blood Pressure [Ri ght Arm] Pulse Oximetry 93 Oxygen Delivery Me thod High Flow Nasal Ca nnula Oxygen Flow Rate 30 30 Fraction of Inspir ed Oxygen 80 80 80 Labs Labs: Laboratory Results - last 24 hr 02/14/22 02/14/22 02/14/22 06:35 06:35 06:35 WBC 10.12 RBC 3.66 L Hgb 11.2 L Hct 34.8 MCV 95 MCH 31 MCHC 32 Plt Count 155 VBG pH 7.432 H VBG pCO2 44 VBG pO2 67.6 H VBG HCO3 29 H Potassium 4.0 Magnesium 2.1 NT-Pro-B Natriuret Pep 179 Procalcitonin 0.07
[2022-02-14] MEDS: LACTOBACILLUS ACIDOPHILUS 1 TABLET 2 TAB PO (15:20)
--- NOTE | 2022-02-14 19:29 | PC.NURSE ---
Patient placed on High flow nasal cannula this shift. Initially started on 30 liters and 80% fiO2 - now weaned to 30L and 70% fiO2. Pt received dose of lasix this am - up to the bathroom frequently with SBA. Echo performed this shift. Tolerated IV antibiotics in right wrist. Cough medicine given to help with cough.
[2022-02-14] MEDS: AZITHROMYCIN 250 MG TABLET 500 MG PO (20:16)
[2022-02-15] VITALS (15 sets, daily range): BP systolic 104–127; BP diastolic 62–76; PULSE 56–98; RESP 18–24; TEMP 36.5–37.4; O2SAT 91–95
[2022-02-15] MEDS: PIPERACILLIN/TAZOBACTAM 3.375 GM in 0.9 % SODIUM CHLORIDE Mini-bag 100 ML IVPB ×4 (01:31→20:07)
--- NOTE | 2022-02-15 05:01 | PC.NURSE ---
Pt rested well this night. On High Flow 30/70 to maintain sats in the low 90s. Up IND in room. Reporting zero pain. Oriented x3. LS coarse crackles. Afebrile.
[2022-02-15] MEDS: LEVOTHYROXINE 75 MCG TABLET 150 MCG PO (06:09)
[2022-02-15] MEDS: LACTOBACILLUS ACIDOPHILUS 1 TABLET 2 TAB PO ×3 (08:15→17:23)
[2022-02-15] MEDS: METOPROLOL TARTRATE 50 MG TABLET PO ×2 (09:55→20:08)
[2022-02-15] MEDS: IPRAT-ALBUT 0.5-2.5 MG/3 ML NEB 1 NEB IH ×4 (09:56→20:08)
[2022-02-15] MEDS: RIVAROXABAN 10 MG TABLET 20 MG PO (09:56)
--- NOTE | 2022-02-15 10:03 | CRLHL7_ITS ---
For Patients: As a result of the Cures Act, medical imaging exams and procedure reports are released immediately into your electronic medical record. You may view this report before your referring provider. If you have questions, please contact your health care provider. Indication: Worsening hypoxia, mucous plugging and chronic bronchitis Technique: Volumetric multidetector CT images of the chest were obtained without the administration of IV contrast. Comparison: CT chest without contrast February 11, 2022 Findings: The thoracic inlet and thyroid gland are unremarkable. The thoracic aorta is nonaneurysmal. There are reactive, enlarged mediastinal and hilar lymph nodes. There is no axillary adenopathy. There is moderate central bronchial thickening with marked mucoid impaction of the right greater than left lower lobe bronchi. There is dense airspace opacification of the right greater than left lower lobes commensurate with developing multifocal infiltrates. There is biapical pleural thickening. There is demonstration of a small pulmonary nodule within the peripheral right upper lobe on series 2, image 36 measuring 5.1 millimeters. The partially visualized upper abdominal viscera are within normal limits. The thoracic vertebral body heights are grossly maintained with moderate to severe degenerative disc disease. There is no significant spondylolisthesis or displaced fracture. Impression: Marked central bronchial thickening and mucoid impaction of the right greater than left lower lobe bronchi with extensive airspace opacities predominantly within the right greater than left lower lobes likely representing infiltrates Please note that all CT scans at this facility use dose modulation, iterative reconstruction, and/or weight-based dosing when appropriate to reduce radiation dose to as low as reasonably achievable. Dictated by Darci Ulloa MD @ 02/15/2022 11:21:31 AM (Electronically Signed)
[2022-02-15 11:21] LABS: HCO3 VBG 29 mmol/L (21-28); Lactate* 0.9 mmol/L (0.5-1.9); PCO2 VBG 44 mmHG (40-50); PO2 VBG 62.6 mmHG (25-47); pH VBG 7.437 (7.32-7.43)
[2022-02-15 11:24] LABS: Hematocrit 35.4 % (33.0-51.0); Hemoglobin* 11.6 gm/dL (12.0-16.0); Mean Corpuscular HGB Conc 33 gm/dL (32-36); Mean Corpuscular Hemoglobin 31 pg (26-34); Mean Corpuscular Volume 95 fL (80-100); Platelet Count* 181 K/uL (140-440); Red Blood Count 3.74 m/uL (4.00-5.20); White Blood Count* 11.86 K/uL (4.50-11.00)
[2022-02-15 11:30] LABS: Slide Review Reflex No
[2022-02-15 11:48] LABS: Potassium* 3.5 mmol/L (3.6-5.1)
[2022-02-15 11:51] LABS: Creatinine* 0.6 mg/dL (0.5-1.5); Est. Creatinine Clearance* 32.23; Estimated Glomerular Filt Rate 91 ml/min
[2022-02-15 12:01] LABS: NT Pro B Type NatriureticPept* 795 PG/mL (0-450)
[2022-02-15] MEDS: guaiFENesin 100 MG/ML CUP PO (15:13)
--- NOTE | 2022-02-15 15:17 | PM.IMPN1 ---
Progress Note: A&P Assessment and plan (1) Community acquired pneumonia: Problem details: Started on Zosyn and azithromycin 02/11 Status: Acute Assessment and Plan: 1. Doing well on current IV antibiotic regimen. (2) Acute respiratory failure with hypoxia: Status: Acute Assessment and Plan: 1. Better controlled on the high-flow oxygen at 30 liters/minute with an FiO2 of 70%. 2. Marked mucoid plugging of bronchi bilaterally right greater than left consistent with persistent hypoxemia. (3) Asthma: Problem details: Mild intermittent per history. Never hospitalized or intubated. Status: Acute Assessment and Plan: 1. Continue with empiric bronchodilators as presently instituted. (4) Atrial fibrillation: Problem details: Paroxysmal Status: Acute Assessment and Plan: 1. Currently in normal sinus rhythm. (5) Hypothyroidism: Status: Chronic Assessment and Plan: 1. Continue with supportive efforts. (6) Hypertension: Status: Chronic Assessment and Plan: 1. Continue supportive efforts. (7) Breast cancer: Status: Chronic (8) Osteoporosis: Status: Chronic Plan 1. Reviewed my impressions with the patient. 2. Continue with all current efforts. 3. Anticipate patient will need a minimum of 2-3 more nights before she might possibly be able to be discharged. 4. Encouraged increased activity. Time Spent With Patient Total time spent: 40 minutes Subjective Time Seen by Provider: 09:00 Date Seen: 02/15/22 Interval history: Hospital day 5. 81-year-old woman with baseline asthma presented with community-acquired pneumonia and acute hypoxemic respiratory failure. Initially requiring oxygen supplementation at 6 liters/minute via nasal cannula continuously to maintain saturations of 90% or greater at rest. Presently on high-flow oxygen with FiO2 of 70% at 30 liters/minute. Overall feels much improved today compared to yesterday. Tolerating oral intake. Denies nausea or vomiting. Denies orthostasis, lightheadedness, dizziness, syncope, or near syncope. Denies chest heaviness, pressure, tightness, or pain. Tolerating increased activities today. Able to cough but not able to expectorates. Had much better sleep last night. Exam Narrative: Exam Narrative: Alert, oriented to self, place, time, situation. Bibasilar rales, right more so than left. No wheezing or rhonchi. Heart tones with regular rhythm, normal S1-S2. Abdomen with active bowel sounds, soft, nontender. Extremities without edema. Independent transfer, station, and gait. Skin is warm, dry, intact. Const: Vital Signs, click to edit/add: Vital Signs - 24 hr 02/14/22 16:00 02/14/22 18:00 02/14/22 19:00 Temperature 98.2 F Pulse Rate [Pulse Oximeter] 65 Respiratory Rate 18 Blood Pressure [Ri ght Arm] 128/51 L Pulse Oximetry 92 Oxygen Delivery Me thod High Flow Nasal Ca nnula Oxygen Flow Rate 30 Fraction of Inspir ed Oxygen 75 70 70 02/14/22 20:00 02/14/22 22:00 02/14/22 22:45 Temperature 97.9 F Pulse Rate [Pulse Oximeter] 66 Respiratory Rate 18 Blood Pressure [Ri ght Arm] 105/66 Pulse Oximetry 94 Oxygen Delivery Me thod High Flow Nasal Ca nnula Oxygen Flow Rate Fraction of Inspir ed Oxygen 70 70 70 02/14/22 22:47 02/15/22 00:00 02/15/22 01:41 Temperature Pulse Rate [Pulse Oximeter] 66 Respiratory Rate 18 Blood Pressure [Ri ght Arm] Pulse Oximetry Oxygen Delivery Me thod Oxygen Flow Rate Fraction of Inspir ed Oxygen 70 70 02/15/22 02:08 02/15/22 03:54 02/15/22 05:17 Temperature 98 F Pulse Rate [Pulse Oximeter] 60 Respiratory Rate 18 Blood Pressure [Ri ght Arm] 123/62 Pulse Oximetry 91 Oxygen Delivery Me thod High Flow Nasal Ca nnula Oxygen Flow Rate 30 Fraction of Inspir ed Oxygen 70 70 70 02/15/22 08:20 02/15/22 07:00 02/15/22 07:00 Temperature 99.3 F Pulse Rate [Pulse Oximeter] 85 Respiratory Rate 24 24 Blood Pressure [Ri ght Arm] 127/74 Pulse Oximetry 91 Oxygen Delivery Me thod High Flow Nasal Ca nnula Oxygen Flow Rate 30 30 Fraction of Inspir ed Oxygen 70 70 02/15/22 10:00 Temperature Pulse Rate [Pulse Oximeter] Respiratory Rate Blood Pressure [Ri ght Arm] Pulse Oximetry Oxygen Delivery Me thod Oxygen Flow Rate Fraction of Inspir ed Oxygen 70 Documenting provider has reviewed patient's vital signs: yes Labs Labs: Laboratory Results - last 24 hr 02/15/22 02/15/22 02/15/22 11:17 11:17 11:17 WBC 11.86 H RBC 3.74 L Hgb 11.6 L Hct 35.4 MCV 95 MCH 31 MCHC 33 Plt Count 181 VBG pH 7.437 H VBG pCO2 44 VBG pO2 62.6 H VBG HCO3 29 H Potassium 3.5 L Creatinine 0.6 Estimated Creat Clear 32.23 Estimated GFR 91 Lactate 0.9 NT-Pro-B Natriuret Pep [address] scan - chest: Attestation: I have reviewed the pertinent imaging results. Radiologist's impression: Marked central bronchial thickening and mucoid impaction of the right greater than left lower lobe bronchi with extensive airspace opacities predominantly within the right greater than left lower lobes likely representing infiltrates
--- NOTE | 2022-02-15 15:47 | PC.NURSE ---
shift [id number] Pt this shift, independent in room, calm and cooperative. Maintained SpO2 89-94% on high flow. CT done today of lungs, awaiting results. Tolerating reg diet but states that appetite is low. Coarse crackles heard throughout. Requests a shower this evening.
--- NOTE | 2022-02-15 18:44 | PC.NURSE ---
shift note: vss stable. pt denies chest pain or pressure. pt on hiflo with cont sats @ 93%. pt tolerated having shower with 5L pnc in place during activity. IV patent
[2022-02-15] MEDS: AZITHROMYCIN 250 MG TABLET 500 MG PO (20:08)
[2022-02-16] VITALS (13 sets, daily range): BP systolic 113–122; BP diastolic 59–65; PULSE 54–71; RESP 14–28; TEMP 36.6–37.6; O2SAT 91–98
[2022-02-16] MEDS: PIPERACILLIN/TAZOBACTAM 3.375 GM in 0.9 % SODIUM CHLORIDE Mini-bag 100 ML IVPB ×4 (02:15→20:18)
--- NOTE | 2022-02-16 05:42 | PC.NURSE ---
Shift 7p-7a: Pt. AOx4, following commands, on Hi-Flow oxygen at 30L and FiO2 at 65%, pt. satting 92%. Pt. ambulating independently to toilet, voiding w/o difficulty. LT arm limb alert in place, RT FA IV SL. Pt. receiving IV abx, states she feels much better than yesterday. Pt. denies headache, dizziness, N/V. LS coarse crackles in bases, non-productive cough.
[2022-02-16] MEDS: LEVOTHYROXINE 75 MCG TABLET 150 MCG PO (06:23)
[2022-02-16] MEDS: LACTOBACILLUS ACIDOPHILUS 1 TABLET 2 TAB PO ×3 (07:51→17:47)
[2022-02-16] MEDS: guaiFENesin 100 MG/ML CUP PO ×2 (08:58→12:55)
[2022-02-16] MEDS: IPRAT-ALBUT 0.5-2.5 MG/3 ML NEB 1 NEB IH ×4 (09:56→20:18)
[2022-02-16] MEDS: RIVAROXABAN 10 MG TABLET 20 MG PO (09:56)
[2022-02-16] MEDS: METOPROLOL TARTRATE 50 MG TABLET PO ×2 (09:56→09:59)
[2022-02-16 10:09] LABS: Potassium* 3.2 mmol/L (3.6-5.1)
[2022-02-16 10:11] LABS: Hematocrit 34.6 % (33.0-51.0); Hemoglobin* 11.3 gm/dL (12.0-16.0); Mean Corpuscular HGB Conc 33 gm/dL (32-36); Mean Corpuscular Hemoglobin 31 pg (26-34); Mean Corpuscular Volume 95 fL (80-100); Platelet Count* 178 K/uL (140-440); Red Blood Count 3.66 m/uL (4.00-5.20); White Blood Count* 8.25 K/uL (4.50-11.00)
[2022-02-16 10:12] LABS: Slide Review Reflex No
[2022-02-16 10:31] LABS: C.Difficile Negative (Negative); CDIFFEPI 027 PRESUMPTIVE NEGATIVE (Negative)
--- NOTE | 2022-02-16 15:34 | PC.NURSE ---
shift [id number] Pt this shift sitting up in [facility]. RT moved high flow from 30-70-36 to 20-55-36, pt margot well at 95%. Robitussin Q4H prn for thick secretions. Non-productive moist cough persists. Walked the kennedy x 2 with portable O2 nasal cannula at 6L/min, sats remained at 90%. No tray ordered for lunch d/t low appetite but stated she would order an early dinner. Scant amount of edema bilat calfs, non pitting. Frequent and urgent loose stool this morning, stool sample came back negative for c.diff. Encouraged to pick yogurt at meal times and cont the probiotic.
--- NOTE | 2022-02-16 17:58 | P.IMPN_ITS ---
Progress Note: A&P Assessment and plan (1) Community acquired pneumonia: Problem details: Started on Zosyn and azithromycin 02/11 Status: Acute (2) Acute respiratory failure with hypoxia: Status: Acute (3) Asthma: Problem details: Mild intermittent per history. Never hospitalized or intubated. Status: Acute (4) Atrial fibrillation: Problem details: Paroxysmal Status: Acute (5) Hypothyroidism: Status: Chronic (6) Hypertension: Status: Chronic (7) Breast cancer: Status: Chronic (8) Osteoporosis: Status: Chronic Plan 1. Continue with current treatment efforts. 2. Will attempt to initiate oxygen titration downward as early as tomorrow. 3. Consider switching to oral antibiotic tomorrow. 4. Continue with other supportive efforts. 5. Patient agreeable to above stated plans and recommendations. Time Spent With Patient Total time spent: 20 minutes Subjective Time Seen by Provider: 09:00 Date Seen: 02/16/22 Interval history: Hospital day 6. 81-year-old woman with baseline asthma presented with community-acquired pneumonia and acute hypoxemic respiratory failure. Initially requiring oxygen supplementation at 6 liters/minute via nasal cannula continuously to maintain sa turations of 90% or greater at rest. Initially improved. Subsequently condition worsen. Now on high-flow humidified oxygen with an FiO2 of 0.7 at 30 liters/minute and generally doing much better. Overall feels much improved today compared to yesterday. Tolerating oral intake. Denies nausea or vomiting. Denies orthostasis, lightheadedness, dizziness, syncope, or near syncope. Denies chest heaviness, pressure, tightness, or pain. Tolerating increased movements in her room today. Able to cough but not able to expectorates. Had much better sleep last night. Exam Narrative: Exam Narrative: Appears comfortable on current regimen. No acute distress. Hard of hearing. Articulate. Cooperative. Alert, oriented to self, place, time, situation. Mood and affect are congruent. Lungs actually sound a little clear although she still has bibasilar rales. No wheezing or rhonchi. No CVA tenderness. Heart tones with regular rhythm, normal S1-S2. Abdomen with active bowel sounds, soft, nontender. Extremities without edema. Independent transfer, station, and gait. No focal motor neurologic deficits. No tremor, asterixis, or ataxia. Skin is warm, dry, intact. Const: Vital Signs, click to edit/add: Vital Signs - 24 hr 02/15/22 18:00 02/15/22 19:00 02/15/22 20:00 Temperature 98.7 F Pulse Rate [Pulse Oximeter] 98 Respiratory Rate 22 Blood Pressure [Ri ght Arm] 118/76 Pulse Oximetry 93 Oxygen Delivery Me thod High Flow Nasal Ca nnula Oxygen Flow Rate 30 Fraction of Inspir ed Oxygen 70 70 70 02/15/22 22:00 02/15/22 23:00 02/15/22 23:00 Temperature 98.3 F Pulse Rate [Pulse Oximeter] 71 71 Respiratory Rate 22 22 Blood Pressure [Ri ght Arm] 118/69 Pulse Oximetry 95 Oxygen Delivery Me thod High Flow Nasal Ca nnula Oxygen Flow Rate 30 Fraction of Inspir ed Oxygen 70 70 02/15/22 23:49 02/16/22 02:00 02/16/22 03:00 Temperature 98.2 F Pulse Rate [Pulse Oximeter] 64 Respiratory Rate 20 Blood Pressure [Ri ght Arm] 118/60 Pulse Oximetry 95 Oxygen Delivery Me thod High Flow Nasal Ca nnula Oxygen Flow Rate 30 Fraction of Inspir ed Oxygen 70 70 65 02/16/22 04:00 02/16/22 05:55 02/16/22 07:00 Temperature 99.7 F H Pulse Rate [Pulse Oximeter] 62 Respiratory Rate 14 Blood Pressure [Ri ght Arm] 113/62 Pulse Oximetry 94 Oxygen Delivery Me thod High Flow Nasal Ca nnula Oxygen Flow Rate 30 Fraction of Inspir ed Oxygen 65 65 70 02/16/22 08:00 02/16/22 10:00 02/16/22 11:00 Temperature 98.6 F Pulse Rate [Pulse Oximeter] 54 L Respiratory Rate 18 Blood Pressure [Ri ght Arm] 119/64 Pulse Oximetry 98 Oxygen Delivery Me thod High Flow Nasal Ca nnula Oxygen Flow Rate 30 Fraction of Inspir ed Oxygen 70 70 70 02/16/22 11:46 02/16/22 13:00 02/16/22 15:00 Temperature Pulse Rate [Pulse Oximeter] Respiratory Rate Blood Pressure [Ri ght Arm] Pulse Oximetry Oxygen Delivery Me thod Oxygen Flow Rate 20 Fraction of Inspir ed Oxygen 50 55 55 02/16/22 15:00 02/16/22 15:00 02/16/22 17:00 Temperature 98.6 F Pulse Rate [Pulse Oximeter] 64 64 Respiratory Rate 28 H 28 H Blood Pressure [Ri ght Arm] 115/59 L Pulse Oximetry 97 Oxygen Delivery Me thod High Flow Nasal Ca nnula Oxygen Flow Rate 20 Fraction of Inspir ed Oxygen 55 55 Labs Labs: Laboratory Results - last 24 hr 02/16/22 02/16/22 02/16/22 09:13 09:35 09:35 WBC 8.25 RBC 3.66 L Hgb 11.3 L Hct 34.6 MCV 95 MCH 31 MCHC 33 Plt Count 178 Potassium 3.2 L Stl C.difficile Tox PCR Negative St C. diff Tox Epid 027 PRESUMPTIVE NEGATIVE
[2022-02-16] MEDS: AZITHROMYCIN 250 MG TABLET 500 MG PO (20:18)
[2022-02-17] VITALS (13 sets, daily range): BP systolic 120–134; BP diastolic 60–68; PULSE 60–69; RESP 24–28; TEMP 36.6–37.3; O2SAT 91–96
[2022-02-17] MEDS: guaiFENesin 100 MG/ML CUP PO ×3 (00:28→13:42)
[2022-02-17] MEDS: PIPERACILLIN/TAZOBACTAM 3.375 GM in 0.9 % SODIUM CHLORIDE Mini-bag 100 ML IVPB ×4 (02:09→20:20)
[2022-02-17] MEDS: LEVOTHYROXINE 75 MCG TABLET 150 MCG PO (07:42)
--- NOTE | 2022-02-17 07:53 | PC.NURSE ---
15-07: indep in room. Calls appropriately. No c/o pain. HFNC at 20/55, sats 91-96%. Occasional cough, guaifenesin given at HS, aerobika use encouraged. VSS. Afebrile.
[2022-02-17] MEDS: METOPROLOL TARTRATE 50 MG TABLET PO ×2 (08:39→20:20)
[2022-02-17] MEDS: RIVAROXABAN 10 MG TABLET 20 MG PO (08:39)
[2022-02-17] MEDS: IPRAT-ALBUT 0.5-2.5 MG/3 ML NEB 1 NEB IH ×4 (08:39→20:21)
[2022-02-17] MEDS: LACTOBACILLUS ACIDOPHILUS 1 TABLET 2 TAB PO ×3 (09:36→17:28)
[2022-02-17 12:05] LABS: Potassium* 3.7 mmol/L (3.6-5.1)
--- NOTE | 2022-02-17 17:03 | P.IMPN_ITS ---
Progress Note: A&P Assessment and plan (1) Community acquired pneumonia: Problem details: Started on Zosyn and azithromycin 02/11 Status: Acute Assessment and Plan: 1. Will stop Zosyn. 2. Stop azithromycin. 3. Will treat with Augmentin orally. (2) Acute respiratory failure with hypoxia: Status: Acute Assessment and Plan: 1. Continue with high-flow oxygen efforts to assist with meeting oxygen needs as well as humidification to address the mucus plugging. 2. Will work with respiratory therapy tomorrow to try to wean her off of high- flow oxygen if at all possible. (3) Asthma: Problem details: Mild intermittent per history. Never hospitalized or intubated. Status: Acute Assessment and Plan: 1. Not problematic at this time. (4) Atrial fibrillation: Problem details: Paroxysmal Status: Acute Assessment and Plan: 1. Weight rate controlled. 2. Anticoagulated. (5) Hypothyroidism: Status: Chronic Assessment and Plan: 1. Continue supportive efforts. (6) Hypertension: Status: Chronic Assessment and Plan: 1. Continue supportive efforts. (7) Breast cancer: Status: Chronic (8) Osteoporosis: Status: Chronic Plan 1. Patient agreeable to above stated plans and recommendations. Time Spent With Patient Total time spent: 20 minutes. Subjective Time Seen by Provider: 09:00 Date Seen: 02/17/22 Interval history: Hospital day 7. 81-year-old woman with baseline asthma presented with community-acquired pneumonia and acute hypoxemic respiratory failure. Initially requiring oxygen supplementation at 6 liters/minute via nasal cannula continuously to maintain saturations of 90% or greater at rest. Initially improved. Subsequently condition worsen. Now on high-flow humidified oxygen with an FiO2 of 0.5 at 20 liters/minute and generally doing much better. Overall feels much improved today compared to yesterday. Tolerating oral intake. Denies nausea or vomiting. Denies orthostasis, lightheadedness, dizziness, syncope, or near syncope. Denies chest heaviness, pressure, tightness, or pain. Tolerating increased movements in her room today. Able to cough but not able to expectorates. Slept well last night. Exam Narrative: Exam Narrative: Appears comfortable. No acute distress. Not actively coughing when I walk in the room any longer. Alert, oriented to self, place, time, situation. Mood and affect are congruent. Friendly cooperative. No JVD or hepatojugular reflux. Still has some rales bilaterally. No wheezing or rhonchi. Not using accessory muscles of respiration. Heart tones with regular rhythm, normal S1-S2. Abdomen with active bowel sounds, soft nontender. Extremities without edema. Independent transfer station and gait. Skin is warm, dry, intact. Const: Vital Signs, click to edit/add: Vital Signs - 24 hr 02/16/22 19:00 02/16/22 19:00 02/16/22 20:33 Temperature Pulse Rate [Pulse Oximeter] 71 Respiratory Rate 28 H Blood Pressure [Ri ght Arm] 114/65 Pulse Oximetry 95 Oxygen Delivery Me thod High Flow Nasal Ca nnula Oxygen Flow Rate 20 Fraction of Inspir ed Oxygen 55 55 55 02/16/22 23:00 02/16/22 23:00 02/16/22 23:00 Temperature 97.9 F Pulse Rate [Pulse Oximeter] 62 62 Respiratory Rate 24 28 H Blood Pressure [Ri ght Arm] 122/60 Pulse Oximetry 91 Oxygen Delivery Me thod High Flow Nasal Ca nnula Oxygen Flow Rate 20 Fraction of Inspir ed Oxygen 55 55 02/17/22 00:41 02/17/22 02:28 02/17/22 03:00 Temperature 97.9 F Pulse Rate [Pulse Oximeter] 62 Respiratory Rate 28 H Blood Pressure [Ri ght Arm] 128/60 Pulse Oximetry 94 Oxygen Delivery Me thod High Flow Nasal Ca nnula Oxygen Flow Rate 20 Fraction of Inspir ed Oxygen 55 55 55 02/17/22 04:40 02/17/22 07:00 02/17/22 07:00 Temperature Pulse Rate [Pulse Oximeter] Respiratory Rate 24 Blood Pressure [Ri ght Arm] Pulse Oximetry Oxygen Delivery Me thod Oxygen Flow Rate Fraction of Inspir ed Oxygen 55 55 02/17/22 07:00 02/17/22 09:00 02/17/22 11:00 Temperature 98.2 F Pulse Rate [Pulse Oximeter] 69 Respiratory Rate 24 Blood Pressure [Ri ght Arm] 131/61 Pulse Oximetry 94 Oxygen Delivery Me thod High Flow Nasal Ca nnula Oxygen Flow Rate 20 Fraction of Inspir ed Oxygen 55 55 55 02/17/22 11:00 02/17/22 13:00 Temperature 99.2 F Pulse Rate [Pulse Oximeter] 60 Respiratory Rate 27 H Blood Pressure [Ri ght Arm] 120/67 Pulse Oximetry 94 Oxygen Delivery Me thod High Flow Nasal Ca nnula Oxygen Flow Rate 20 Fraction of Inspir ed Oxygen 55 55 Documenting provider has reviewed patient's vital signs: yes Labs Labs: Laboratory Results - last 24 hr 02/17/22 11:41 Potassium 3.7 Magnesium 2.0
--- NOTE | 2022-02-17 19:26 | PC.NURSE ---
shift [id number] pt this shift calm and cooperative. Walked the kennedy x1. Tolerating high-flow, skin intact. Ate most of all meals. Educated on the use of probiotics and their benefits.
[2022-02-17] MEDS: AZITHROMYCIN 250 MG TABLET 500 MG PO (20:20)
[2022-02-18] VITALS (13 sets, daily range): BP systolic 129–148; BP diastolic 68–76; PULSE 57–75; RESP 18–28; TEMP 36.2–37; O2SAT 90–97
[2022-02-18] MEDS: PIPERACILLIN/TAZOBACTAM 3.375 GM in 0.9 % SODIUM CHLORIDE Mini-bag 100 ML IVPB ×2 (01:53→07:52)
[2022-02-18] MEDS: LEVOTHYROXINE 75 MCG TABLET 150 MCG PO (06:18)
--- NOTE | 2022-02-18 07:46 | PC.NURSE ---
shift unremarkable. pt continues to cough up sputum when able to. VSS. Afebrile.
[2022-02-18] MEDS: LACTOBACILLUS ACIDOPHILUS 1 TABLET 2 TAB PO ×3 (07:51→17:40)
[2022-02-18] MEDS: guaiFENesin 100 MG/ML CUP PO ×2 (07:52→14:03)
[2022-02-18] MEDS: METOPROLOL TARTRATE 50 MG TABLET PO ×2 (09:51→20:32)
[2022-02-18] MEDS: IPRAT-ALBUT 0.5-2.5 MG/3 ML NEB 1 NEB IH ×4 (09:51→20:32)
[2022-02-18] MEDS: RIVAROXABAN 10 MG TABLET 20 MG PO (09:51)
--- NOTE | 2022-02-18 11:25 | PM.IMPN1 ---
Progress Note: A&P Assessment and plan (1) Community acquired pneumonia: Problem details: Started on Zosyn and azithromycin 02/11 Status: Acute Assessment and Plan: 1. Stab Zosyn and azithromycin today. 2. Augmentin 875/125, 1 tab p.o. b.i.d. for 3-5 more days. (2) Acute respiratory failure with hypoxia: Status: Acute Assessment and Plan: 1. Discussed with our respiratory therapist. 2. Continue with efforts to try to slowly wean off of high-flow oxygen delivery system and switch to low-flow oxygen delivery system if possible. (3) Asthma: Problem details: Mild intermittent per history. Never hospitalized or intubated. Status: Acute (4) Atrial fibrillation: Problem details: Paroxysmal Status: Acute (5) Hypothyroidism: Status: Chronic (6) Hypertension: Status: Chronic (7) Breast cancer: Status: Chronic (8) Osteoporosis: Status: Chronic Plan 1. Answered patient's questions to her satisfaction. 2. Revealed plans and recommendations with patient. She is agreeable. Time Spent With Patient Total time spent: 20 minutes Subjective Time Seen by Provider: 08:00 Date Seen: 02/18/22 Interval history: Hospital day 8. 81-year-old woman with baseline asthma presented with community-acquired pneumonia and acute hypoxemic respiratory failure. Initially requiring oxygen supplementation at 6 liters/minute via nasal cannula continuously to maintain saturations of 90% or greater at rest. Initially improved. Subsequently condition worsened. Now on high-flow humidified oxygen with an FiO2 of 0.45 at 20 liters/minute and generally doing much better. Overall feels much improved today compared to yesterday. Tolerating oral intake. Denies nausea or vomiting. Appetite is slowly improving. Denies orthostasis, lightheadedness, dizziness, syncope, or near syncope. Denies chest heaviness, pressure, tightness, or pain. Tolerating increased movements in her room today. Able to cough but not able to expectorates. Slept well last night. Exam Narrative: Exam Narrative: Appears comfortable. No acute distress. Hard of hearing. Friendly, cooperative. Mood and affect are congruent. Alert, oriented to self, place, time, situation. Neck exam with no JVD or hepatojugular reflux. Lung exam has bibasilar scattered rhonchi and rales without wheezing. Heart tones with regular rhythm, normal S1 S2. Abdomen with active bowel sounds, soft, nontender. Extremities without edema. Independent transfer, station, and gait. Skin is warm, dry, intact. Aside from the chronic bilateral hearing deficit, no other acute focal motor neurologic deficits. Const: Vital Signs, click to edit/add: Vital Signs - 24 hr 02/17/22 13:00 02/17/22 15:00 02/17/22 15:00 Temperature Pulse Rate [Pulse Oximeter] Respiratory Rate 24 Blood Pressure [Ri ght Arm] Pulse Oximetry Oxygen Delivery Me thod Oxygen Flow Rate Fraction of Inspir ed Oxygen 55 55 02/17/22 15:00 02/17/22 17:00 02/17/22 19:00 Temperature 98.8 F Pulse Rate [Pulse Oximeter] 69 Respiratory Rate 24 Blood Pressure [Ri ght Arm] 123/66 Pulse Oximetry 91 Oxygen Delivery Me thod High Flow Nasal Ca nnula Oxygen Flow Rate 20 Fraction of Inspir ed Oxygen 55 55 55 02/17/22 19:00 02/17/22 21:00 02/17/22 23:00 Temperature 98.3 F Pulse Rate [Pulse Oximeter] 64 Respiratory Rate 24 Blood Pressure [Ri ght Arm] 134/63 Pulse Oximetry 95 Oxygen Delivery Me thod High Flow Nasal Ca nnula Oxygen Flow Rate 20 Fraction of Inspir ed Oxygen 55 55 55 02/17/22 23:00 02/17/22 23:00 02/18/22 00:25 Temperature 98.2 F Pulse Rate [Pulse Oximeter] 61 61 Respiratory Rate 28 H 28 H Blood Pressure [Ri ght Arm] 131/68 Pulse Oximetry 92 Oxygen Delivery Me thod High Flow Nasal Ca nnula Oxygen Flow Rate 20 Fraction of Inspir ed Oxygen 55 55 02/18/22 02:22 02/18/22 02:22 02/18/22 02:24 Temperature 98.2 F Pulse Rate [Pulse Oximeter] 62 Respiratory Rate 28 H Blood Pressure [Ri ght Arm] 148/76 H Pulse Oximetry 95 Oxygen Delivery Me thod High Flow Nasal Ca nnula Oxygen Flow Rate 20 Fraction of Inspir ed Oxygen 55 55 55 02/18/22 09:30 Temperature Pulse Rate [Pulse Oximeter] Respiratory Rate Blood Pressure [Ri ght Arm] Pulse Oximetry Oxygen Delivery Me thod Oxygen Flow Rate 20 Fraction of Inspir ed Oxygen 45 Documenting provider has reviewed patient's vital signs: yes Labs Labs: Laboratory Results - last 24 hr 02/17/22 11:41 Potassium 3.7 Magnesium 2.0
--- NOTE | 2022-02-18 15:14 | PC.NURSE ---
shift [id number] pt this shift calm and cooperative. Walk the kennedy x1 with SB assist for O2 tank and tubing. High-flow decreased today to 20-45-36. Pt a little concerned about needing O2 at home. Soup Mixer discussed the need for short term use at times while lungs continue to heal. Also discussed using an at home pulse oximeter that can be bought at [employer] or [facility] pharmacy to help pt know when and when not O2 may be needed. Appetitie cont to be low but pt is picking healthy menu items and eating 50-75%. Guaifenesin 100mg given x2 PRN for loosening secretions. IV ABX DC'd and oral ABX started for this evening.
[2022-02-18] MEDS: AMOXICILLIN/CLAVULANATE 875 mg/125 mg TABLET PO (17:40)
[2022-02-19] VITALS (14 sets, daily range): BP systolic 118–138; BP diastolic 61–74; PULSE 59–97; RESP 16–20; TEMP 36.2–37; O2SAT 90–93
[2022-02-19] MEDS: guaiFENesin 100 MG/ML CUP PO (02:31)
--- NOTE | 2022-02-19 06:51 | PC.NURSE ---
Shift note: HFNC 20L O240%, sats 90-91%. Pt is afebrile, ambulates independently, no c/o plain
[2022-02-19 06:56] LABS: HCO3 VBG 31 mmol/L (21-28); PCO2 VBG 48 mmHG (40-50); PO2 VBG 65.5 mmHG (25-47)
[2022-02-19 07:09] LABS: Hemoglobin* 11.1 gm/dL (12.0-16.0)
[2022-02-19 07:17] LABS: Potassium* 3.8 mmol/L (3.6-5.1)
[2022-02-19] MEDS: AMOXICILLIN/CLAVULANATE 875 mg/125 mg TABLET PO ×2 (08:27→17:52)
[2022-02-19] MEDS: RIVAROXABAN 10 MG TABLET 20 MG PO (08:27)
[2022-02-19] MEDS: METOPROLOL TARTRATE 50 MG TABLET PO ×2 (08:27→20:56)
[2022-02-19] MEDS: LACTOBACILLUS ACIDOPHILUS 1 TABLET 2 TAB PO ×3 (08:27→17:52)
[2022-02-19] MEDS: LEVOTHYROXINE 75 MCG TABLET 150 MCG PO (08:28)
[2022-02-19] MEDS: IPRAT-ALBUT 0.5-2.5 MG/3 ML NEB 1 NEB IH ×4 (08:28→20:56)
--- NOTE | 2022-02-19 15:15 | PM.IMPN1 ---
Progress Note: A&P Assessment and plan (1) Community acquired pneumonia: Problem details: Initially on IV Zosyn and p.o. azithromycin. Complete oral Augmentin on Tuesday02/21/2022. Status: Acute (2) Acute respiratory failure with hypoxia: Problem details: CT scans of the chest revealed diffuse mucus plugging Status: Acute Assessment and Plan: 1. Continue with high-flow, humidified O2 for now. 2. Consider switching to low-flow oxygen system and monitoring her on the same for a minimum of 24 hours before considering discharge home. (3) Asthma: Problem details: Mild intermittent per history. Never hospitalized or intubated. Status: Acute (4) Atrial fibrillation: Problem details: Paroxysmal Status: Acute (5) Hypothyroidism: Status: Chronic (6) Hypertension: Status: Chronic (7) Breast cancer: Status: Chronic (8) Osteoporosis: Status: Chronic Plan 1. Reviewed with patient. Answered her questions. 2. Continue with current efforts at slowly reducing her oxygen administration and monitoring her response. Time Spent With Patient Total time spent: 30 minutes Subjective Time Seen by Provider: 09:30 Date Seen: 02/19/22 Interval history: Hospital day 9. 81-year-old woman with baseline asthma presented with community-acquired pneumonia and acute hypoxemic respiratory failure. Initially requiring oxygen supplementation at 6 liters/minute via nasal cannula continuously to maintain saturations of 90% or greater at rest. Initially improved. Subsequently condition worsened. Now on high-flow humidified oxygen with an FiO2 of 0.30 at 20 liters/minute and generally doing much better. Feels well. Tolerating oral intake. Denies nausea or vomiting. Appetite is slowly improving. Denies orthostasis, lightheadedness, dizziness, syncope, or near syncope. Denies chest heaviness, pressure, tightness, or pain. Tolerating increased movements in her room. Less frequent and intense coughing. Slept well last night. Exam Narrative: Exam Narrative: Alert, oriented to self, place, time, situation. Hard of hearing, chronic. Bibasilar rales in lungs. Scattered rhonchi. No wheezing. Heart tones with regular rhythm, normal S1-S2. Abdomen with active bowel sounds, soft, nontender. Extremities without edema. Skin is warm, dry, intact. Independent transfer, station, and gait. Const: Vital Signs, click to edit/add: Vital Signs - 24 hr 02/18/22 16:00 02/18/22 17:00 02/18/22 19:00 Temperature 97.2 F L Pulse Rate [Pulse Oximeter] 63 Respiratory Rate 18 Blood Pressure [Ri ght Arm] 132/73 Pulse Oximetry 94 Oxygen Delivery Me thod High Flow Nasal Ca nnula Oxygen Flow Rate 15 Fraction of Inspir ed Oxygen 45 45 45 02/18/22 20:00 02/18/22 21:00 02/18/22 23:00 Temperature 98.6 F Pulse Rate [Pulse Oximeter] 75 Respiratory Rate 18 Blood Pressure [Ri ght Arm] 143/68 H Pulse Oximetry 94 Oxygen Delivery Me thod High Flow Nasal Ca nnula Oxygen Flow Rate 15 Fraction of Inspir ed Oxygen 45 45 40 02/18/22 23:00 02/19/22 00:00 02/19/22 01:00 Temperature 98.3 F Pulse Rate [Pulse Oximeter] 61 Respiratory Rate 20 20 Blood Pressure [Ri ght Arm] 130/70 Pulse Oximetry 90 Oxygen Delivery Me thod High Flow Nasal Ca nnula Oxygen Flow Rate Fraction of Inspir ed Oxygen 40 02/19/22 03:00 02/19/22 04:00 02/19/22 05:00 Temperature Pulse Rate [Pulse Oximeter] 97 Respiratory Rate 20 Blood Pressure [Ri ght Arm] Pulse Oximetry 91 Oxygen Delivery Me thod High Flow Nasal Ca nnula Oxygen Flow Rate Fraction of Inspir ed Oxygen 40 40 02/19/22 09:28 02/19/22 08:00 02/19/22 08:00 Temperature 97.5 F L Pulse Rate [Pulse Oximeter] 65 65 Respiratory Rate 20 20 Blood Pressure [Ri ght Arm] 127/69 Pulse Oximetry 92 Oxygen Delivery Me thod High Flow Nasal Ca nnula Oxygen Flow Rate 20 20 Fraction of Inspir ed Oxygen 30 35 02/19/22 11:00 02/19/22 13:00 02/19/22 12:00 Temperature 97.2 F L Pulse Rate [Pulse Oximeter] 67 Respiratory Rate 20 Blood Pressure [Ri ght Arm] 118/67 Pulse Oximetry 91 Oxygen Delivery Me thod High Flow Nasal Ca nnula Oxygen Flow Rate 20 Fraction of Inspir ed Oxygen 35 25 25 Documenting provider has reviewed patient's vital signs: yes Labs Labs: Laboratory Results - last 24 hr 02/19/22 02/19/22 02/19/22 06:25 06:25 06:25 Hgb 11.1 L VBG pH 7.420 VBG pCO2 48 VBG pO2 65.5 H VBG HCO3 31 H Potassium 3.8
[2022-02-19] MEDS: SODIUM CHLORIDE 0.9 % (FLUSH) 10 ML SYRINGE 5 ML IVF (20:58)
--- NOTE | 2022-02-19 22:29 | PC.NURSE ---
Shift [id number]- Patient denies pain throughout shift. She remains on HFNC with saturations ~or>90%, using 3L O2 NC to ambulate to bathroom. Occasional cough, sometimes productive. She is using aerobika and IS independently, particularly aerobika.
[2022-02-20] VITALS (11 sets, daily range): BP systolic 112–146; BP diastolic 63–97; PULSE 59–74; RESP 15–20; TEMP 36.3–36.7; O2SAT 90–94
[2022-02-20] MEDS: guaiFENesin 100 MG/ML CUP PO (01:25)
--- NOTE | 2022-02-20 05:52 | PC.NURSE ---
Shift note: HFNC at 20L 30%O2, she sats around 90-91%. Pt ambulates independently, has frequent wet cough but unable to bring up the sputum.
[2022-02-20] MEDS: LEVOTHYROXINE 75 MCG TABLET 150 MCG PO (06:30)
[2022-02-20] MEDS: RIVAROXABAN 10 MG TABLET 20 MG PO (09:57)
[2022-02-20] MEDS: AMOXICILLIN/CLAVULANATE 875 mg/125 mg TABLET PO ×2 (09:58→17:27)
[2022-02-20] MEDS: METOPROLOL TARTRATE 50 MG TABLET PO ×2 (09:58→21:16)
[2022-02-20] MEDS: SODIUM CHLORIDE 0.9 % (FLUSH) 10 ML SYRINGE 5 ML IVF ×2 (09:59→21:22)
[2022-02-20] MEDS: LACTOBACILLUS ACIDOPHILUS 1 TABLET 2 TAB PO ×2 (09:59→17:27)
[2022-02-20] MEDS: IPRAT-ALBUT 0.5-2.5 MG/3 ML NEB 1 NEB IH ×4 (10:00→21:16)
--- NOTE | 2022-02-20 13:08 | RESP.RT ---
Weaned Pt off of HFNC, using1-3 liters of oxygen depending on activity. She does recover quickly if she does desaturate. Plan is to not restart HFNC. If pt tolerates low flow oxygen, RT will qualify her for home oxygen tomorrow. She is using PEP therapy and IS independently.
--- NOTE | 2022-02-20 14:04 | P.IMPN_ITS ---
Progress Note: A&P Assessment and plan (1) Community acquired pneumonia: Problem details: Initially on IV Zosyn and p.o. azithromycin. Complete oral Augmentin on Tuesday02/21/2022. Status: Acute Assessment and Plan: Clinically improving (2) Acute respiratory failure with hypoxia: Problem details: CT scans of the chest revealed diffuse mucus plugging Status: Acute (3) Asthma: Problem details: Mild intermittent per history. Never hospitalized or intubated. Status: Acute (4) Atrial fibrillation: Problem details: Paroxysmal Status: Acute (5) Hypertension: Status: Chronic Plan Will discontinue high-flow oxygen. Will see if she can maintain oxygen saturations on nasal cannula with a plan to discharge tomorrow on nasal cannula oxygen. Time Spent With Patient Total time spent: Total time spent today is 40 minutes, 30 minutes in coordination of care discussing with patient and other providers management of pneumonia and hypoxia. Subjective Date Seen: 02/20/22 Interval history: 81-year-old female seen in followup of hypoxic respiratory failure due to bilateral pneumonia. Patient reports continuing to have clinical improvement. She feels like her breathing is better. This morning she was taken off of high- flow nasal cannula and reports that she feels like she is doing fine on regular nasal cannula at 2 L per minute. She did not have any fever. She still has some cough. No chest pain. She reports her appetite is beginning to come back. She has no other concerns today. Exam Narrative: Exam Narrative: She is alert and appears in no distress. Speech is normal. She is oriented to her circumstances. She is pleasant and cooperative. Oropharynx is normal. Neck is supple without mass or adenopathy. Respirations are clear to auscultation except for a few basilar crackles more on the right than the left. She has diminished breath sounds but no wheezing. Mildly prolonged expiratory phase. Cardiovascular: S1, S2, regular rate and rhythm. No murmur gallop or rub. Abdomen: Bowel sounds active. Abdomen is soft without tenderness or mass. Extremities with trace edema in the ankles. No rash. Const: Vital Signs, click to edit/add: Vital Signs - 24 hr 02/19/22 18:18 02/19/22 15:15 02/19/22 15:15 Temperature 98.2 F Pulse Rate [Pulse Oximeter] 59 L Respiratory Rate 18 Blood Pressure [Ri ght Arm] 124/66 Pulse Oximetry 91 Oxygen Delivery Me thod High Flow Nasal Ca nnula Oxygen Flow Rate 20 20 Fraction of Inspir ed Oxygen 25 25 25 02/19/22 17:04 02/19/22 19:12 02/19/22 20:00 Temperature 98.6 F Pulse Rate [Pulse Oximeter] 70 Respiratory Rate 16 Blood Pressure [Ri ght Arm] 138/74 Pulse Oximetry 91 Oxygen Delivery Me thod High Flow Nasal Ca nnula Oxygen Flow Rate 20 Fraction of Inspir ed Oxygen 25 25 25 02/19/22 23:00 02/19/22 23:00 02/20/22 01:00 Temperature 98.2 F Pulse Rate [Pulse Oximeter] 70 Respiratory Rate 18 Blood Pressure [Ri ght Arm] 134/61 Pulse Oximetry 91 Oxygen Delivery Me thod High Flow Nasal Ca nnula Oxygen Flow Rate Fraction of Inspir ed Oxygen 30 30 02/20/22 03:00 02/20/22 03:00 02/20/22 05:00 Temperature Pulse Rate [Pulse Oximeter] 74 Respiratory Rate 16 Blood Pressure [Ri ght Arm] Pulse Oximetry 92 Oxygen Delivery Me thod High Flow Nasal Ca nnula Oxygen Flow Rate Fraction of Inspir ed Oxygen 30 30 02/20/22 13:06 Temperature Pulse Rate [Pulse Oximeter] Respiratory Rate 15 Blood Pressure [Ri ght Arm] Pulse Oximetry Oxygen Delivery Me thod Nasal Cannula Oxygen Flow Rate 2 Fraction of Inspir ed Oxygen Documenting provider has reviewed patient's vital signs: yes
--- NOTE | 2022-02-20 15:25 | PC.NURSE ---
Pt's Hi Flow settings adjusted at initial assessment 20L/25% Fio2/36degrees. Eval by Dr. Moreno. Hi Flow discontinued by Osiris Weems RT. Pt place on 3L/nc, she has been tapered to 2L/nc and is currently on 1L/NC with sats maintained in the low 90's. UAL in room. Please see eMar for medications given to Apryl on day shift. Report to oncoming shift RN.
--- NOTE | 2022-02-20 18:45 | PC.NURSE ---
Shift [id number]- Patient remains on 1L O2 with saturations in low 90s%. She denies pain. She is sitting up in chair. Occasional wet sounding cough that she states bring stuff up, but just goes back down again. She is using aerobika and IS independently.
[2022-02-21 03:00] VITALS: BP 134/69; PULSE 65; RESP 20; TEMP 36.6; O2SAT 90
--- NOTE | 2022-02-21 05:48 | PC.NURSE ---
[id number]: Patient pleasant and cooperative. Denies pain. Denies SOB. Intermittent productive throughout shift. Independent. Uses Aerobika and IS independently. Walk halls x1. Toward end of walk O2 dropped to 87% but quickly recovered to 90% at rest. Increased O2 from 1 Ltr to 2 Ltr NC during noc d/t sats 86-87% during spot checks. Eager to d/c.
[2022-02-21] MEDS: LEVOTHYROXINE 75 MCG TABLET 150 MCG PO (06:56)
[2022-02-21 07:00] VITALS: BP 140/77; PULSE 51; RESP 24; TEMP 36.6; O2SAT 91
[2022-02-21] MEDS: AMOXICILLIN/CLAVULANATE 875 mg/125 mg TABLET PO (07:41)
[2022-02-21] MEDS: LACTOBACILLUS ACIDOPHILUS 1 TABLET 2 TAB PO ×2 (07:41→12:26)
[2022-02-21] MEDS: RIVAROXABAN 10 MG TABLET 20 MG PO (08:48)
[2022-02-21] MEDS: METOPROLOL TARTRATE 50 MG TABLET PO (08:48)
[2022-02-21] MEDS: IPRAT-ALBUT 0.5-2.5 MG/3 ML NEB 1 NEB IH (08:48)
[2022-02-21] MEDS: SODIUM CHLORIDE 0.9 % (FLUSH) 10 ML SYRINGE 5 ML IVF (08:50)
[2022-02-21 09:11] VITALS: O2SAT 86; O2SAT 90
--- NOTE | 2022-02-21 09:21 | P.HOT_ITS ---
Acute Home Oxygen Therapy Acute Home Oxygen Therapy Diagnosis for Oxygen Therapy (1) Community acquired pneumonia: Code(s): J18.9 - Pneumonia, unspecified organism Provider Note Provider Note: Patient was admitted on 02/12/22 at 08:54 and will be discharging on 02/21/2022 Patient is desaturating with SATs of 86% on room air due to pneumonia. Alternative therapies have been attempted and have not been successful in henry ntaining the patient's saturation level above 88%. Supplemental O2 is required. This patient is mobile within the home and requires portability.
--- NOTE | 2022-02-21 09:42 | PM.DS1 ---
DS: Providers Provider Date Seen: 02/21/22 Date of admission: 02/12/22 08:54 Primary care physician: Zelda Samuels DO Admitting Clinician: Gagan Osborn MD Attending Physician on discharge: Gagan Osborn MD Date of Discharge: 02/21/22 DS: Diagnosis Discharge Diagnosis (1) Community acquired pneumonia: Status: Acute (2) Acute respiratory failure with hypoxia: Status: Acute Problem details: CT scans of the chest revealed diffuse mucus plugging (3) Asthma: Status: Acute Problem details: Mild intermittent per history. Never hospitalized or intubated. DS: Summary Hospital Course Hospital Course: 81-year-old female admitted to the hospital with few days of cough and shortness of breath. She was seen in clinic and referred to the hospital because of hypoxemia with O2 sat of 85%. Initial chest x-ray was unremarkable but CT of the chest showed bibasilar infiltrates. She was treated with piperacillin tazobactam and azithromycin. Dense transition to Augmentin for a full 10 day course of antibiotics. Clinically she improved in all regards except she had persistent hypoxia. O2 sats 86% on room air at rest on the day of discharge. She requires 2 L per nasal cannula to maintain her O2 sat above 90%. Status at Discharge Functional status at discharge: independent ambulation Overall status at discharge: patient is back to baseline Time Spent with Patient Time attestation: Total time spent providing and/or coordinating discharge services: Time spent: Greater than 30 minutes Exam Narrative: Exam Narrative: She is alert and appears in no distress. Breathing is unlabored. She is oriented to her circumstances. Respirations with diminished breath sounds but otherwise clear. No wheezing rales or rhonchi. Cardiovascular: S1, S2, regular rate and rhythm. No murmur gallop or rub. Abdomen: Bowel sounds active soft nontender no mass. Const: Vital Signs, click to edit/add: Vital Signs - 24 hr 02/20/22 13:06 02/20/22 11:00 02/20/22 13:00 Temperature Pulse Rate [Pulse Oximeter] Respiratory Rate 15 Blood Pressure [Ri ght Arm] Pulse Oximetry Oxygen Delivery Me thod Nasal Cannula Oxygen Flow Rate 2 Fraction of Inspir ed Oxygen 0 0 02/20/22 13:00 02/20/22 15:15 02/20/22 19:00 Temperature 98 F 97.7 F 98.0 F Pulse Rate [Pulse Oximeter] 59 L 64 63 Respiratory Rate 20 16 20 Blood Pressure [Ri ght Arm] 142/74 H 146/97 H 139/90 H Pulse Oximetry 93 91 91 Oxygen Delivery Me thod Nasal Cannula Nasal Cannula Nasal Cannula Oxygen Flow Rate 3 1 1 Fraction of Inspir ed Oxygen 02/20/22 23:00 02/20/22 23:00 02/21/22 03:00 Temperature 97.4 F L 97.8 F Pulse Rate [Pulse Oximeter] 61 65 Respiratory Rate 20 20 20 Blood Pressure [Ri ght Arm] 112/76 134/69 Pulse Oximetry 93 92 90 Oxygen Delivery Me thod Nasal Cannula Nasal Cannula Nasal Cannula Oxygen Flow Rate 1 1.0 2.0 Fraction of Inspir ed Oxygen 02/21/22 07:00 02/21/22 07:00 Temperature 98 F Pulse Rate [Pulse Oximeter] 51 L 51 L Respiratory Rate 24 24 Blood Pressure [Ri ght Arm] 140/77 H Pulse Oximetry 91 Oxygen Delivery Me thod Nasal Cannula Oxygen Flow Rate 1.5 Fraction of Inspir ed Oxygen Documenting provider has reviewed patient's vital signs: yes DS: Data Imaging CT scan - chest: Radiologist's impression: [place] [address] Diagnostic Imaging Report Patient: Apryl Mckinney MR#: [id number] : 1940 Acct:[id number] Loc: [id number] Service Date: 02/15/[address]: Gagan Osborn M.D. Ordering Physician: Rafat Kovacs M.D. Date of Service: 02/15/22 Procedure(s): CT chest wo con Accession Number(s): [id number] cc: Rafat Kovacs M.D.; Zelda Samuels D.O.~ For Patients:? As a result of the 21st Century Cures Act, medical imaging exams and procedure reports are released immediately into your electronic medical record.? You may view this report before your referring provider.? If you have questions, please contact your health care provider. Indication: Worsening hypoxia, mucous plugging and chronic bronchitis Technique: Volumetric multidetector CT images of the chest were obtained without the administration of IV contrast. Comparison: CT chest without contrast February 11, 2022 Findings: The thoracic inlet and thyroid gland are unremarkable. The thoracic aorta is nonaneurysmal. There are reactive, enlarged mediastinal and hilar lymph nodes. There is no axillary adenopathy. There is moderate central bronchial thickening with marked mucoid impaction of the right greater than left lower lobe bronchi. There is dense airspace opacification of the right greater than left lower lobes commensurate with developing multifocal infiltrates. There is biapical pleural thickening. There is demonstration of a small pulmonary nodule within the peripheral right upper lobe on series 2, image 36 measuring 5.1 millimeters. The partially visualized upper abdominal viscera are within normal limits. The thoracic vertebral body heights are grossly maintained with moderate to severe degenerative disc disease. There is no significant spondylolisthesis or displaced fracture. Impression: Marked central bronchial thickening and mucoid impaction of the right greater than left lower lobe bronchi with extensive airspace opacities predominantly within the right greater than left lower lobes likely representing infiltrates Please note that all CT scans at this facility use dose modulation, iterative reconstruction, and/or weight-based dosing when appropriate to reduce radiation dose to as low as reasonably achievable. Dictated by Darci Ulloa MD @ 02/15/2022 11:21:31 AM (Electronically Signed) Discharge Plan Discharge Disposition: Home, Self-Care Date of Admission: 02/12/22 08:54 Primary Care Provider: Zelda Samuels Condition: Improved Anticipated Discharge Date/Time: 02/21/22 09:47 Discharge Medications: New (DME) Home Oxygen Misc See Rx Instructions .ROUTE Qty: 1 0RF Rx Instructions: As directed (DME) Home Oxygen Misc See Rx Instructions .Route Qty: 1 0RF Rx Instructions: 2 liters/minute per nasal cannula continuously Continued anastrozole 1 mg tablet 1 mg PO DAILY Label Comments: TAKE ONE TABLET BY MOUTH ONE TIME DAILY triamcinolone acetonide 0.5 % cream 1 applic TOPICAL BID PRN Label Comments: apply topically to affected area (leg spots) twice daily until resolved. amlodipine 5 mg tablet 5 mg PO DAILY Label Comments: TAKE ONE TABLET BY MOUTH ONE TIME DAILY ferrous sulfate [FeroSul] 325 mg (65 mg iron) tablet 325 mg PO DAILY Label Comments: TAKE 1 TABLET BY MOUTH EVERY OTHER DAY. levothyroxine 150 mcg tablet 150 mcg PO DAILY Label Comments: TAKE ONE TABLET BY MOUTH ONE TIME DAILY BEFORE BREAKFAST Dulera 200-5 mcg/actuation HFA aerosol inhaler 2 inh INHALATION Q12H Label Comments: INHALE TWO PUFFS BY MOUTH TWICE DAILY Xarelto 20 mg tablet 20 mg PO Q24H Label Comments: TAKE ONE TABLET BY MOUTH ONE TIME DAILY WITH EVENING MEAL. Discharge Orders: Discharge Order (Routine); Ordered 02/21/22 Ordered By: Misha Moreno Activity Level: No Restrictions Discharge Diet: Regular Follow Up Appointments: Zelda Samuels DO [Primary Care Provider] - (Appointment in 3-5 days) Forms: [facility] Info Instructions
[2022-02-21 11:00] VITALS: BP 139/82; PULSE 55; RESP 26; TEMP 36.9; O2SAT 91
--- NOTE | 2022-02-21 12:50 | PC.NURSE ---
Addendum entered by Deonna Aguilera RN 02/21/22 12:58: Discharge at 1246. Addendum entered by Deonna Aguilera RN 02/21/22 12:57: Discharge: Patient pleasant and cooperative. Patient vitally stable, right side posterior lung with crackles, BS WNL, IV removed, catheter intact. Patient on 1 L with sats in low 90's. Patient independent in room. Patient denied pain. Patient tolerating regular diet, had 1 moderate soft BM, and urinating. Patient signed belongings sheet and discharge form. Patient left the floor by wheelchair with oxygen concentrator at 2 L and belongings at 1046. Original Note: Discharge: Patient pleasant and cooperative. Patient vitally stable, right side posterior lung with crackles, BS WNL, IV removed, catheter intact. Patient on 1 L with sats in low 90's. Patient independent in room. Patient denied pain. Patient tolerating regular diet, had 1 moderate soft BM, and urinating. Patient signed belongings sheet and discharge form. Patient left the floor by wheelchair with oxygen concentrator at 2 L and belongings.
== END 2022-02-21 12:46 | disposition home or self-care (01) | DRG 193 ==
LOC: ED 15:54 → MEDSURG 19:11
PROVIDERS: Family Medicine; Internal Medicine; Admitting Provider Internal Medicine; Emergency Provider Emergency Medicine Emergency Medical Services; PCP Family Medicine; Visit Provider Internal Medicine
DX: J18.9 Pneumonia, unspecified organism (principal); J96.01 Acute respiratory failure with hypoxia; J45.909 Unspecified asthma, uncomplicated; I48.0 Paroxysmal atrial fibrillation; I10 Essential (primary) hypertension; M81.0 Age-related osteoporosis without current pathological fracture; C50.919 Malignant neoplasm of unspecified site of unspecified female breast; E03.9 Hypothyroidism, unspecified
CPT/HCPCS: 36415; 36600; 71045; 71250; 80048; 82565; 82803; 83605; 83735; 83880; 84132; 84145; 84484; 85018; 85025; 85027; 85379; 86140; 87040; 87493; 87502; 87635; 93005; 93306; 94640; 94664; 94761; 99285; G0378; A9270; J0456; J1940; J2543; J2920; J7050

== ENCOUNTER 2022-04-07 11:16 | Outpatient (CLI) | payer MEDICARE, BC, SELFPAY ==
--- NOTE | 2022-04-07 11:30 | CRLHL7_ITS ---
For Patients: As a result of the Century Cures Act, medical imaging exams and procedure reports are released immediately into your electronic medical record. You may view this report before your referring provider. If you have questions, please contact your health care provider. BILATERAL SCREENING MAMMOGRAM WITH COMPUTER-AIDED DETECTION AND TOMOSYNTHESIS TECHNIQUE: CC and MLO views were obtained. These mammographic images have been obtained using full-field digital technique. These mammographic images were interpreted with the benefit of computer-aided detection. Breast Tomosynthesis was used in this interpretation. COMPARISON FILM: 04/06/21, 04/01/20, 12/18/18. FINDINGS: The breasts are heterogeneously dense, which may obscure small masses IMPRESSION: There is no radiographic evidence for malignancy. ASSESSMENT: BI-RADS Category 2: Benign RECOMMENDATION: Routine screening mammogram in 1 year. A lay language report of this examination will be provided to the patient. Imer Pfeiffer M.D. Diagnostic Radiologist [email or web address] ABDI/Dictated by: Imer Pfeiffer MD @ 04/08/2022 10:08:00 AM (Electronically Signed)
== END 2022-04-07 11:17 | disposition home or self-care (01) ==
LOC: MAMMO 11:18
PROVIDERS: PCP Family Medicine; Visit Provider Internal Medicine Hematology & Oncology
DX: Z12.31 Encounter for screening mammogram for malignant neoplasm of breast (principal); R92.2 Inconclusive mammogram
CPT/HCPCS: 77063; 77067

== ENCOUNTER 2022-04-28 10:50 | Outpatient (RCR) | payer MEDICARE, BC, SELFPAY ==
--- NOTE | 2022-05-20 13:36 | ONC.NURNOTE ---
Patient called office stating that she has been out of her anastrozole for over one week and that pharmacy has attempted to contact us. Notified patient that there is no documentation noting this, or a request from pharmacy. Purchasing Buyer asked [employer] DRIVER to fill for patient. She would like this sent to [facility].
== END 2022-10-25 23:59 | disposition home or self-care (01) ==
LOC: CCIC 10:50
PROVIDERS: PCP Family Medicine; Visit Provider Internal Medicine Hematology & Oncology
DX: C50.912 Malignant neoplasm of unspecified site of left female breast (principal); Z17.0 Estrogen receptor positive status [ER+]; Z79.811 Long term (current) use of aromatase inhibitors; M81.0 Age-related osteoporosis without current pathological fracture
CPT/HCPCS: 99212; 99214

== ENCOUNTER 2022-05-07 15:06 | Outpatient (RCR) | payer MEDICARE, BC, SELFPAY | END 2023-01-06 23:59 | disposition home or self-care (01) | PROVIDERS: PCP Family Medicine; Visit Provider Family Medicine | DX: R41.89 Other symptoms and signs involving cognitive functions and awareness (principal); Z51.89 Encounter for other specified aftercare | CPT/HCPCS: 97165 ==

== ENCOUNTER 2022-07-20 12:01 | Emergency (ER) | payer MEDICARE, BC, SELFPAY ==
[2022-07-20 12:35] VITALS: BP 152/84; PULSE 74; RESP 16; TEMP 36.8; O2SAT 94; BMI 31.2
--- NOTE | 2022-07-20 14:50 | CRLHL7_ITS ---
For Patients: As a result of the Century Cures Act, medical imaging exams and procedure reports are released immediately into your electronic medical record. You may view this report before your referring provider. If you have questions, please contact your health care provider. INDICATION: Fall. TECHNIQUE: Left knee 3 views. COMPARISON: Left knee radiographs 09/26/2015. FINDINGS: No acute fracture or dislocation. The patella is normally aligned. Moderate narrowing of the medial and patellofemoral compartments. Moderate knee joint effusion. Soft tissues are unremarkable. IMPRESSION: Moderate knee joint effusion. Dictated by Bernadette Velásquez MD @ 07/20/2022 4:19:17 PM (Electronically Signed)
--- NOTE | 2022-07-20 14:51 | ED_ITS ---
HPI - Extremity Injury (Lower) General Chief Complaint: Extremity Pain/Injury, Lower Stated Complaint: Fall Knee Injury Time Seen by Provider: 07/20/22 14:32 History of Present Illness HPI Narrative: This 82-year-old female comes in with an injury to her left knee. She states that she was ambulating down some steps and when she came to the last step for left knee lost strength and she fell onto it. She complains of some pain in the medial aspect of her left knee. She does not report any other injury. She did not hit her head or have loss of consciousness. She states that this left knee is weaker than the right 1 and she should of step-down with the other leg. She is able to ambulate and did come in walking with the assistance of a cane. Related Data Home Medications Medication Instructions Recorded Confirmed amlodipine 5 mg tablet 5 mg PO DAILY 02/11/22 07/20/22 ferrous sulfate 325 mg (65 mg 325 mg PO DAILY 02/11/22 07/20/22 iron) tablet (FeroSul) levothyroxine 150 mcg tablet 150 mcg PO DAILY 02/11/22 07/20/22 mometasone-formoterol HFA 200 2 inh inhalation Q12H 02/11/22 07/20/22 mcg-5 mcg/actuation aerosol inhaler (Dulera) rivaroxaban 20 mg tablet (Xarelto) 20 mg PO Q24H 02/11/22 07/20/22 triamcinolone acetonide 0.5 % 1 applic topical BID PRN 02/11/22 07/20/22 topical cream Previous Rx's Medication Instructions Recorded anastrozole 1 mg tablet 1 mg PO DAILY #90 tabs 05/20/22 Allergies Allergy/AdvReac Type Severity Reaction Status Date / Time latex Allergy Intermediate Hives Uncoded 02/11/22 15:09 Review of Systems Status of ROS: Reports: 10 or more systems reviewed and unremarkable except as noted in History and below Narrative: Constitutional: No fevers, no weight gain or loss. Eyes: No discharge. No vision changes. HENT: No congestion, no sore throat, no ear pain. Cardiovascular: No chest pain, no palpitations. Respiratory: No shortness of breath, no wheezes, no cough. Gastrointestinal: No abdominal pain, no vomiting, no diarrhea. Genitourinary: No dysuria, no hematuria. Musculoskeletal: Normal range of motion. Skin: No rashes, no pruritis. Neurological: No dizziness, weakness, sensory change, speech change. Endo/Heme/Allergies: No bruising or bleeding. No polydipsia. Pysch: no suicidality, no anxiety, no insomnia. All other systems reviewed and are negative. [facility] Medical History (Updated 07/20/22 @ 16:24 by Chaparro Lanza MD) Asthma Atrial fibrillation Breast cancer Hypertension Hypothyroidism Osteoporosis Social History Highest level of school completed/degree received: high school graduate Smoking Status: Former smoker What tobacco products do you use: cigarettes Smoking quit date/years: >15 years ago Do you use any of these nicotine containing products: None Second hand tobacco smoke exposure: No How often do you have a drink containing alcohol: 2-4 times a month Alcohol type: beer How often do you have six or more drinks on one occasion: Never AUDIT-C Alcohol total score: 2 Non-prescribed substance use: denies use Caffeine: Yes service: No Exam Narrative: Exam Narrative: Constitutional: Well-developed, well-nourished, no acute distress. HEENT: Normocephalic, atraumatic. Neck: Normal range of motion. Nontender. Supple. Heart: Intact distal pulses. Lungs: No chest discomfort. No wheezes, rhonchi, or rales. Abdomen: Nontender. Back: Normal range of motion. Extremities: Normal range of motion. Diffuse tenderness in the anterior medial aspect of the left knee no sign of skin injury, deformity, or swelling. Skin: Intact. No rash. Warm. No erythema or pallor. Neurologic: No altered sensation. No weakness. Alert and oriented. Psychiatric: No suicidality. No anxiety or depression. No insomnia. Nursing notes and vitals signs are reviewed. Const: Vital Signs, click to edit/add: Vital Signs - 24 hr 07/20/22 12:35 Temperature 98.3 F Pulse Rate [Right Pulse Oximeter] 74 Respiratory Rate 16 Blood Pressure [Ri ght Upper Arm] 152/84 H Pulse Oximetry 94 Oxygen Delivery Me thod Room Air Course Vital Signs Vital signs: Initial Vital Signs Temperature 98.3 F 07/20/22 12:35 Temperature Source Temporal Artery Scan 07/20/22 12:35 Pulse Rate 74 07/20/22 12:35 Pulse Rhythm 07/20/22 12:35 Respiratory Rate 16 07/20/22 12:35 Blood Pressure 152/84 H 07/20/22 12:35 Blood Pressure Mean 106 07/20/22 12:35 Blood Pressure Position Sitting 07/20/22 12:35 Pulse Oximetry 94 07/20/22 12:35 Oxygen Delivery Method 07/20/22 12:35 Vital Signs Temperature 98.3 F 07/20/22 12:35 Pulse Rate 74 07/20/22 12:35 Respiratory Rate 16 07/20/22 12:35 Blood Pressure 152/84 H 07/20/22 12:35 Pulse Oximetry 94 07/20/22 12:35 Oxygen Delivery Method 07/20/22 12:35 Temperature 98.3 F 07/20/22 12:35 Pulse Rate 74 07/20/22 12:35 Respiratory Rate 16 07/20/22 12:35 Blood Pressure 152/84 H 07/20/22 12:35 Pulse Oximetry 94 07/20/22 12:35 Oxygen Delivery Method 07/20/22 12:35 MDM - Extremity Injury (Lower) MDM Narrative Medical decision making narrative: This patient comes in for evaluation of pain in her left anterior medial knee because of a fall that occurred just prior to arrival. She is able to ambulate. She states that her knee feels stiff but does not report any feeling of instability or catching or locking. X-ray imaging by my review with radiology report pending shows no acute findings. Patient does have a small effusion related to this. Her ligament exam is normal. She has full range of motion. She normally ambulates without assistance but does have a cane and can use a walker if needed. She is okay to be discharged home and encouraged use Tylenol as needed and directed for pain relief. I advised her to follow-up with her primary physician or orthopedic clinic if not improving or worsening. Imaging Data XR L Knee: My impression: X-ray by my review shows no acute findings. Discharge Plan Discharge Clinical Impression: Contusion of knee, left Patient Disposition: Home, Self-Care Condition: Stable Additional Instructions: Use a cane or walker as needed for assistance when ambulating. Take Tylenol as needed and directed for pain relief. Increase activity as tolerated. Follow up with primary physician or orthopedic clinic if not improving. Return if worsening. Prescriptions: No Action triamcinolone acetonide 0.5 % cream 1 applic TOPICAL BID PRN Label Comments: apply topically to affected area (leg spots) twice daily until resolved. amlodipine 5 mg tablet 5 mg PO DAILY Label Comments: TAKE ONE TABLET BY MOUTH ONE TIME DAILY ferrous sulfate [FeroSul] 325 mg (65 mg iron) tablet 325 mg PO DAILY Label Comments: TAKE 1 TABLET BY MOUTH EVERY OTHER DAY. levothyroxine 150 mcg tablet 150 mcg PO DAILY Label Comments: TAKE ONE TABLET BY MOUTH ONE TIME DAILY BEFORE BREAKFAST Dulera 200-5 mcg/actuation HFA aerosol inhaler 2 inh INHALATION Q12H Label Comments: INHALE TWO PUFFS BY MOUTH TWICE DAILY Xarelto 20 mg tablet 20 mg PO Q24H Label Comments: TAKE ONE TABLET BY MOUTH ONE TIME DAILY WITH EVENING MEAL. anastrozole 1 mg tablet 1 mg PO DAILY Qty: 90 1RF Follow Up/Referrals: Zelda Samuels DO [Primary Care Provider] - Stand Alone Forms: [facility] Info Instructions
== END 2022-07-20 16:35 | disposition home or self-care (01) ==
PROVIDERS: Emergency Provider Emergency Medicine Emergency Medical Services; PCP Family Medicine
DX: M25.462 Effusion, left knee (principal)
CPT/HCPCS: 73562; 99283; 99284

== ENCOUNTER 2022-09-20 14:30 | Outpatient (RCR) | payer MEDICARE, BC, SELFPAY | END 2022-12-03 15:21 | disposition home or self-care (01) | PROVIDERS: PCP Family Medicine; Visit Provider Family Medicine | DX: M25.562 Pain in left knee (principal); Z51.89 Encounter for other specified aftercare | CPT/HCPCS: 97110; 97140; 97161; 97530 ==

== ENCOUNTER 2023-05-26 13:30 | Outpatient (RCR) | payer MEDICARE, BC, SELFPAY | END 2023-06-11 23:59 | disposition home or self-care (01) | LOC: CCIC 13:30 | PROVIDERS: PCP Family Medicine; Visit Provider Physician Assistant | DX: C50.912 Malignant neoplasm of unspecified site of left female breast (principal); Z17.0 Estrogen receptor positive status [ER+]; Z79.811 Long term (current) use of aromatase inhibitors; M81.0 Age-related osteoporosis without current pathological fracture; R91.8 Other nonspecific abnormal finding of lung field; N64.4 Mastodynia; Z87.891 Personal history of nicotine dependence | CPT/HCPCS: 99212; 99213; 99214; 99215 ==

== ENCOUNTER 2023-06-21 08:25 | Outpatient (CLI) | payer MEDICARE, BC, SELFPAY ==
--- NOTE | 2023-06-21 08:45 | CRLHL7_ITS ---
For Patients: As a result of the Cures Act, medical imaging exams and procedure reports are released immediately into your electronic medical record. You may view this report before your referring provider. If you have questions, please contact your health care provider. BILATERAL DIGITAL DIAGNOSTIC MAMMOGRAM USING TOMOSYNTHESIS AND COMPUTER-AIDED DETECTION BILATERAL BREAST ULTRASOUND CLINICAL HISTORY: BILATERAL breast pain upon provider examination. COMPARISON: 04/13/2023, 04/07/2022, 04/06/2021, 04/01/2020. TECHNIQUE: Digital BILATERAL mammogram in four projections. Tomosynthesis and CAD utilized. Real-time ultrasound imaging of BILATERAL breast with imaging documentation. Scanning was performed by both the technologist and the radiologist. BREAST COMPOSITION: There are areas of scattered fibroglandular density. FINDINGS: 3D CC/MLO BILATERAL mammogram images submitted. No suspicious masses or architectural distortion. Post treatment changes LEFT breast. Benign calcifications noted. No adenopathy. No skin thickening. Targeted BILATERAL ultrasound examination performed. At 6 o`clock 6 cm from the nipple bilaterally there is normal tissue. No suspicious findings. IMPRESSION: Post treatment changes LEFT breast. No suspicious findings bilaterally. RECOMMENDATIONS: Routine screening mammography. Results and recommendations discussed with the patient. BI-RADS Category 2: Benign A lay language report of this examination will be provided to the patient. Dictated by Imer Pfeiffer MD @ 06/21/2023 11:12:19 AM /Dictated by: Imer Pfeiffer MD @ 06/21/2023 11:12:00 AM (Electronically Signed)
--- NOTE | 2023-06-21 09:15 | CRLHL7_ITS ---
For Patients: As a result of the Cures Act, medical imaging exams and procedure reports are released immediately into your electronic medical record. You may view this report before your referring provider. If you have questions, please contact your health care provider. PLEASE SEE DIGITAL DIAGNOSTIC BILATERAL MAMMOGRAM PERFORMED SAME DAY CRL:alf milner/Dictated by: Imer Pfeiffer MD @ 06/21/2023 11:12:00 AM (Electronically Signed)
== END 2023-06-21 08:26 | disposition home or self-care (01) ==
LOC: MAMMO 08:26
PROVIDERS: PCP Family Medicine; Visit Provider Physician Assistant
DX: N64.4 Mastodynia (principal)
CPT/HCPCS: 76642; 77066; G0279

== ENCOUNTER 2023-06-30 13:05 | Outpatient (CLI) | payer MEDICARE, BC, SELFPAY ==
--- NOTE | 2023-06-30 13:30 | CRLHL7_ITS ---
For Patients: As a result of the Century Cures Act, medical imaging exams and procedure reports are released immediately into your electronic medical record. You may view this report before your referring provider. If you have questions, please contact your health care provider. DXA BONE MINERAL DENSITY STUDY Reason for exam: Monitoring osteoporosis on aromatase inhibitors. Current height (in): 60.0. Weight (lb): 165.0. Menopause age: 41. Ethnicity: White. 1. Have you had a previous hip or vertebral fracture? No. 2. Have you had any fractures during your adult life which did not result from significant trauma (e.g., auto accident)? No. 3. Did either of your parents have a hip fracture? No. 4. Do you smoke? No. 5. Have you ever taken Glucocorticoids? No. 6. Do you have rheumatoid arthritis? No. 7. Do you have secondary osteoporosis? No. 8. Do you drink 3 or more alcoholic drinks per day? No. 9. Are you being treated for osteoporosis? No. 10. Have you ever taken any of the following medications: Actonel, Evista, Fosamax, Miacalcin, Reclast, Boniva, Forteo, HRT (i.e. estrogen/hormone therapy), Protelos, Prolia, Vitamin D, Calcium, other ??? please specify. ANSWER: Yes, Fosamax, vitamin D, calcium. 11. Do you have any of the following medical conditions: Anorexia or bulimia, asthma or emphysema, end stage renal disease, hyperparathyroidism, any seizure disorders, cancer, inflammatory bowel diseases, hysterectomy, other ??? please specify. ANSWER: Yes, asthma or emphysema, hysterectomy. 12. What was your maximum height (inches)? 63. 13. Do you perform weight bearing exercise regularly? No. 14. Do you regularly consume dairy products? No. 15. Do you drink caffeinated beverages? Yes. 16. At what age did your period start? 14. 17. Are you premenopausal? No. 18. How many full term pregnancies have you had? 2. 19. Have you ever missed your period for more than 6 months in a row (not including or menopause)? No. TECHNIQUE: Bone mineral density study was performed using the [employer]. FINDINGS: The results of the study expressed as bone mineral density (BMD) are as follows: Lumbar spine L1 to L4(L3): BMD: 0.858 g/cm2. T-score: -1.6. Z-score: 1.1. Neck Left: BMD:0.675 g/cm2. T-score: -1.6. Z-score: 0.8. Right: BMD: 0.616 g/cm2. T-score: -2.1. Z-score: 0.3. Total Left: BMD: 0.900 g/cm2. T-score: -0.3. Z-score: 1.8. Right: BMD: 0.888 g/cm2. T-score: -0.4. Z-score: 1.7. IMPRESSION: Osteopenia. FRAX 10-year Fracture Risk Major Osteoporotic Fracture: 15 percent Hip Fracture: 4.6 percent Reported Risk Factors: [place] () Neck BMD=0.616, BMI=32.2 Hiram [email or web address] / [email or web address] be/Dictated by: Jamie Irwin MD @ 07/03/2023 8:31:00 PM (Electronically Signed)
== END 2023-06-30 13:06 | disposition home or self-care (01) ==
LOC: RAD 13:06
PROVIDERS: PCP Family Medicine; Visit Provider Physician Assistant
DX: M81.0 Age-related osteoporosis without current pathological fracture (principal); M85.89 Other specified disorders of bone density and structure, multiple sites; Z79.811 Long term (current) use of aromatase inhibitors
CPT/HCPCS: 77080

== ENCOUNTER 2024-04-23 12:50 | Outpatient (RCR) | payer MEDICARE, BC, SELFPAY ==
--- NOTE | 2024-05-02 11:01 | ONC.NURNOTE ---
Breast Cancer Index testing requested via online portal. Patient will need to see MD in 6 months to review results.
== END 2024-05-08 23:59 | disposition home or self-care (01) ==
LOC: CCIC 12:50
PROVIDERS: PCP Family Medicine; Visit Provider Physician Assistant
DX: C50.912 Malignant neoplasm of unspecified site of left female breast (principal); Z17.0 Estrogen receptor positive status [ER+]; Z79.811 Long term (current) use of aromatase inhibitors; M81.0 Age-related osteoporosis without current pathological fracture; R91.8 Other nonspecific abnormal finding of lung field; Z87.891 Personal history of nicotine dependence
CPT/HCPCS: 99214; G0463

== ENCOUNTER 2024-07-02 13:35 | Outpatient (RCR) | payer MEDICARE, BC, SELFPAY | END 2024-10-30 23:59 | disposition home or self-care (01) | PROVIDERS: PCP Family Medicine; Visit Provider Family Medicine | DX: S46.012A Strain of muscle(s) and tendon(s) of the rotator cuff of left shoulder, initial encounter (principal); Z51.89 Encounter for other specified aftercare | CPT/HCPCS: 97110; 97161 ==

== ENCOUNTER 2024-10-24 11:54 | Emergency (ER) | payer MEDICARE, BC, SELFPAY ==
[2024-10-24 12:02] VITALS: BP 128/85; PULSE 84; RESP 16; TEMP 36.4; O2SAT 93; BMI 30.1
--- NOTE | 2024-10-24 12:49 | ED.GENADULT ---
HPI - General Adult General Time Seen by Provider: 12:50 Date Seen: 10/24/24 Chief complaint: Dizziness/Vertigo Stated complaint: Elevated heart rate Time Seen by Provider: 10/24/24 11:55 Source: patient and family Mode of arrival: wheelchair Limitations: no limitations History of Present Illness HPI narrative: Apryl is 84-year-old female with atrial fibrillation on chronic anticoagulation with Xarelto, asthma, osteoporosis presents emerged department via private car with family members with dizziness and elevated heart rate. Patient states she went to clinic this afternoon for an echocardiogram at 10:30 a.m., once the patient was laid back for the imaging she got very dizzy had to sit back up, they finished around 11:30 a.m., she needed a wheelchair to go into the van where her family was waiting. She explains the dizziness like she does not feel right, she states that does not feel like the room is spinning, she does not feel like she is going to pass out. It seemed worse when she had certain movements is especially laying down. She denies any shortness of breath or chest pain, she denies any headache or visual changes, she denies any recent illness. Patient states she had vertigo in the past but was never this severe. No history of any CAD or stroke. Clinic also noted elevated heart rate, patient denies feeling when she is in atrial fibrillation. She still have a little more weak today. She has no sensations of palpitations. Patient denies any significant dizziness at this time. She has not had any fevers or chills denies any cough or congestion. Related Data Home Medications ?Medication ?Instructions ?Recorded ?Confirmed amlodipine 5 mg tablet 5 mg PO DAILY 02/11/22 10/24/24 levothyroxine 150 mcg tablet 150 mcg PO DAILY 02/11/22 10/24/24 mometasone-formoterol HFA 200 2 inh inhalation Q12H 02/11/22 10/24/24 mcg-5 mcg/actuation aerosol inhaler (Dulera) rivaroxaban 20 mg tablet (Xarelto) 20 mg PO Q24H 02/11/22 10/24/24 triamcinolone acetonide 0.5 % 1 applic topical BID PRN 02/11/22 04/23/24 topical cream albuterol sulfate 90 mcg/actuation 2 inh inhalation Q6H PRN 12/13/22 10/24/24 breath activated powder inhaler ferrous sulfate 325 mg (65 mg 325 mg PO .M_W_F 05/26/23 10/24/24 iron) tablet (FeroSul) ipratropium bromide 17 2 puff inhalation Q6H 11/10/23 10/24/24 mcg/actuation HFA aerosol inhaler (Atrovent HFA) Previous Rx's ?Medication ?Instructions ?Recorded anastrozole 1 mg tablet 1 mg PO DAILY #90 tabs 05/21/24 meclizine 12.5 mg tablet 12.5 mg PO TID PRN #10 tabs 10/24/24 metoprolol succinate 25 mg 25 mg PO DAILY #10 tabs 10/24/24 tablet,extended release 24 hr (Toprol XL) Allergies Allergy/AdvReac Type Severity Reaction Status Date / Time No Known Allergies Allergy Verified 04/23/24 12:38 Review of Systems Status of ROS: Reports: 10 or more systems reviewed and unremarkable except as noted in History and below [facility] Medical History (Updated 10/24/24 @ 15:35 by Julian Hernandez MD) Hypothyroidism ?E03.9 - Hypothyroidism, unspecified (ICD-10) Hypertension ?I10 - Essential (primary) hypertension (ICD-10) Osteoporosis ?M81.0 - Age-related osteoporosis without current pathological fracture (ICD-10) Atrial fibrillation ?I48.91 - Unspecified atrial fibrillation (ICD-10) Asthma ?J45.909 - Unspecified asthma, uncomplicated (ICD-10) Breast cancer ?C50.919 - Malignant neoplasm of unspecified site of unspecified female breast (ICD-10) Social History Highest level of school completed/degree received: high school graduate Smoking Status: Former smoker What tobacco products do you use: cigarettes Smoking quit date/years: >15 years ago Do you use any of these nicotine containing products: None Second hand tobacco smoke exposure: No How often do you have a drink containing alcohol: 2-4 times a month Alcohol type: beer How often do you have six or more drinks on one occasion: Never AUDIT-C Alcohol total score: 2 Non-prescribed substance use: denies use Caffeine: Yes service: No Exam Narrative: Exam Narrative: General: No obvious distress sitting comfortably HEENT: Small cloudy inferior middle ear effusion Right TM. Pupils equal round and reactive to light, extraocular muscles intact, normal visual canales Heart: Irregular regular Lungs: Clear to auscultation bilaterally Abdomen: Soft nontender bowel sounds present Muscle skeletal: +5 strength in upper lower extremities Neuro: Unable to perform [place]-Hallpike, GCS 15, no focal deficits on exam NIH stroke scale of 0 Const: Vital Signs, click to edit/add: Vital Signs - 24 hr 10/24/24 12:02 10/24/24 13:16 10/24/24 13:22 Temperature 97.6 F Pulse Rate 91 93 Pulse Rate [Pulse Oximeter] 84 Pulse Rate [orthos tatic lying Left P ulse Oximeter] Pulse Rate [orthos tatic sitting Left Pulse Oximeter] Pulse Rate [orthos tatic standing Lef t Pulse Oximeter] Respiratory Rate 16 21 12 Blood Pressure 133/88 Blood Pressure [Ri ght Upper Arm] 128/85 Blood Pressure [or thostatic lying Ri ght Arm] Blood Pressure [or thostatic sitting Right Arm] Blood Pressure [or thostatic standing Right Arm] Pulse Oximetry 93 94 Oxygen Delivery Me thod Room Air 10/24/24 14:07 Temperature Pulse Rate Pulse Rate [Pulse Oximeter] Pulse Rate [orthos tatic lying Left P ulse Oximeter] 106 H Pulse Rate [orthos tatic sitting Left Pulse Oximeter] 102 H Pulse Rate [orthos tatic standing Lef t Pulse Oximeter] 103 H Respiratory Rate Blood Pressure Blood Pressure [Ri ght Upper Arm] Blood Pressure [or thostatic lying Ri ght Arm] 132/86 Blood Pressure [or thostatic sitting Right Arm] 140/78 H Blood Pressure [or thostatic standing Right Arm] 125/97 H Pulse Oximetry Oxygen Delivery Me thod Course Course ED Course: Differential diagnosis include CVA, BPPV, labyrinthitis, Meniere disease, vestibular neuritis, migraine, MS, otitis media, viral syndrome, cardiac arrythmia, trauma, hypertensive emergency or urgency, metabolic abnormalities, anxiety, as well as other etiologies, vitals are stable at this time, heart rate has been controlled, workup will include TSH, CBC, troponin T, CMP, 250 mL bolus 0.9 normal saline, will try 12.5 mg meclizine. Patient denies any dizziness at this time, patient does have atrial fibrillation rate controlled, she is on anticoagulation making CVA less likely. No clinical findings suggestive of CVA at this time, will see patient's response to treatment. Will reach out to [facility]. ED disposition based on clinical course. Reevaluation(s) Reevaluation #1: 1:00 PM: EKG showed atrial fibrillation with RVR, bpm 109, nonspecific T-wave abnormality seen on previous, CBC showed no leukocytosis or anemia, TSH within normal limits, metabolic panel showed normal electrolytes, renal function, LFTs, normal point of care troponin. Normal NT proBNP. Spoke with [facility], recommendations were to start patient on Toprol XL 25 mg daily and they will arrange follow-up with them, and to hold on any cardioversion at this time, patient also has a follow-up appoint with her primary care provider next Tuesday, she was given the above care and her dizziness resolved, short course of meclizine 12.5 mg daily over the next week, Toprol XL 25 mg daily over the next 10 days until follow-up appointment. Reasons return were given. Vital Signs Vital signs: Initial Vital Signs Temperature 97.6 F 10/24/24 12:02 Temperature Source Temporal Artery Scan 10/24/24 12:02 Pulse Rate 84 10/24/24 12:02 Respiratory Rate 16 10/24/24 12:02 Blood Pressure 128/85 10/24/24 12:02 Blood Pressure Mean 99 10/24/24 12:02 Pulse Oximetry 93 10/24/24 12:02 Oxygen Delivery Method Room Air 10/24/24 12:02 Vital Signs Temperature 97.6 F 10/24/24 12:02 Pulse Rate 84 10/24/24 12:02 Respiratory Rate 16 10/24/24 12:02 Blood Pressure 128/85 10/24/24 12:02 Pulse Oximetry 93 10/24/24 12:02 Oxygen Delivery Method Room Air 10/24/24 12:02 Temperature 97.6 F 10/24/24 12:02 Pulse Rate 106 H 10/24/24 14:07 Respiratory Rate 12 10/24/24 13:22 Blood Pressure 132/86 10/24/24 14:07 Pulse Oximetry 94 10/24/24 13:22 Oxygen Delivery Method Room Air 10/24/24 12:02 Medications Administered Medications: Discontinued Medications Generic Name Dose Route Start Last Admin Trade Name Freq PRN Reason Stop Dose Admin Sodium Chloride 250 mls @ 250 mls/hr 10/24/24 12:48 10/24/24 14:49 0.9 % Sodium Chloride 250 Ml IV 10/24/24 13:47 Infused .Q1H ONE Infusion Meclizine HCl 12.5 mg 10/24/24 12:48 10/24/24 13:18 Meclizine Hcl 25 Mg Tablet PO 10/24/24 12:49 12.5 mg ONCE ONE Administration Medical Decision Making Lab Data Labs: Lab Results 10/24/24 10/24/24 Range/Units 12:49 13:05 WBC 7.06 (4.50-11.00) K/uL RBC 4.57 (4.00-5.20) m/uL Hgb 14.0 (12.0-16.0) gm/dL Hct 43.6 (33.0-51.0) % MCV 95 (80-100) fL MCH 31 (26-34) pg MCHC 32 (32-36) gm/dL RDW Coeff of Chris 13.1 (11.5-15.5) % Plt Count 192 (140-440) K/uL Neut % (Auto) 73.1 H (42.0-72.0) % Lymph % (Auto) 16.3 L (20-44) % Dickson % (Auto) 8.8 (0.0-11.0) % Eos % (Auto) 1.6 (0.0-7.0) % Baso % (Auto) 0.1 (0.0-3.0) % Neut # (Auto) 5.20 (1.7-7.0) K/uL Lymph # (Auto) 1.20 (0.90-2.90) K/uL Dickson # (Auto) 0.60 (0.00-0.90) K/UL Eos # (Auto) 0.11 (0.00-0.50) K/uL Baso # (Auto) 0.01 (0.00-0.30) K/uL Abs Immat Gran (auto) 0.01 (0.00-0.30) K/uL Imm/Tot Granulo (auto) 0.1 % Sodium 141 (135-149) mmol/L Potassium 3.8 (3.6-5.1) mmol/L Chloride 105 (96-114) mmol/L Carbon Dioxide 28 (20-32) mmol/L Anion Gap 8 (7-15) mEq/L BUN 18 (7-30) mg/dL Creatinine 0.6 (0.5-1.5) mg/dL Estimated Creat Clear 30.62 Estimated GFR 89 ml/min Glucose 99 (60-115) mg/dL Calcium 9.5 (8.4-10.6) mg/dL Total Bilirubin 1.0 (0.1-1.5) mg/dL AST 23 (12-35) U/L ALT 12 (4-35) U/L Alkaline Phosphatase 54 (40-150) U/L NT-Pro-B Natriuret Pep 1490 pg/mL Total Protein 7.2 (6.0-8.3) g/dL Albumin 4.2 (3.3-5.0) g/dL TSH 1.360 (0.270-4.20) uIU/mL POC Troponin I 0.02 (0.01-0.04) ng/ml Discharge Plan Discharge Clinical Impression: Dizziness Atrial fibrillation Qualifiers: Atrial fibrillation type: paroxysmal Qualified Code(s): I48.0 - Paroxysmal atrial fibrillation Patient Disposition: Home, Self-Care Condition: Improved Instructions: A-fib (Atrial Fibrillation) (ED), Dizziness (ED) Additional Instructions: To take Meclizine 12.5 mg every 6 hours as needed for dizziness. Toprol XL 25 mg once daily for atrial fibrillation, to check daily blood pressures, follow-up with primary care provider as scheduled on 10/31. Return if worsening symptoms. Activity Level: No Restrictions Prescriptions: New meclizine 12.5 mg tablet 12.5 mg PO TID PRNQty: 10 0RF metoprolol succinate [Toprol XL] 25 mg tablet extended release 24 hr 25 mg PO DAILY Qty: 10 3RF No Action albuterol sulfate 90 mcg/actuation aerosol powdr breath activated 2 inh inhalation Q6H PRN Atrovent HFA 17 mcg/actuation HFA aerosol inhaler 2 puff inhalation Q6H triamcinolone acetonide 0.5 % cream 1 applic TOPICAL BID PRN Patient Comments: apply topically to affected area (leg spots) twice daily until resolved. amlodipine 5 mg tablet 5 mg PO DAILY Patient Comments: TAKE ONE TABLET BY MOUTH ONE TIME DAILY levothyroxine 150 mcg tablet 150 mcg PO DAILY Patient Comments: TAKE ONE TABLET BY MOUTH ONE TIME DAILY BEFORE BREAKFAST Dulera 200-5 mcg/actuation HFA aerosol inhaler 2 inh INHALATION Q12H Patient Comments: INHALE TWO PUFFS BY MOUTH TWICE DAILY Xarelto 20 mg tablet 20 mg PO Q24H Patient Comments: TAKE ONE TABLET BY MOUTH ONE TIME DAILY WITH EVENING MEAL. ferrous sulfate [FeroSul] 325 mg (65 mg iron) tablet 325 mg PO .M_W_ Patient Comments: anastrozole 1 mg tablet 1 mg PO DAILY Qty: 90 3RF Follow Up/Referrals: Zelda Samuels DO [Primary Care Provider] - Stand Alone Forms: [facility] Info Instructions
[2024-10-24 13:15] LABS: Basophils Absolute Auto 0.01 K/uL (0.00-0.30); Basophils Percent Auto 0.1 % (0.0-3.0); Eosinophils Absolute Auto 0.11 K/uL (0.00-0.50); Eosinophils Percent Auto 1.6 % (0.0-7.0); Hematocrit 43.6 % (33.0-51.0); Immature Granulocytes Abs Auto 0.01 K/uL (0.00-0.30); Immature Granulocytes Pct Auto 0.1 %; Lymphocytes Percent Auto 16.3 % (20-44); Mean Corpuscular HGB Conc 32 gm/dL (32-36); Mean Corpuscular Hemoglobin 31 pg (26-34); Mean Corpuscular Volume 95 fL (80-100); Monocytes Percent Auto 8.8 % (0.0-11.0); Neutrophils Percent Auto 73.1 % (42.0-72.0); Platelet Count* 192 K/uL (140-440); RDW Coefficient of Variation % 13.1 % (11.5-15.5); Red Blood Count 4.57 m/uL (4.00-5.20); White Blood Count* 7.06 K/uL (4.50-11.00)
[2024-10-24 13:16] VITALS: PULSE 91; RESP 21
[2024-10-24 13:16] LABS: Slide Review Reflex No
[2024-10-24] MEDS: MECLIZINE HCL 25 MG TABLET 12.5 MG PO (13:18)
[2024-10-24] MEDS: 0.9 % SODIUM CHLORIDE 250 ml 250 ML IV (13:18)
[2024-10-24 13:22] VITALS: BP 133/88; PULSE 93; RESP 12; O2SAT 94
[2024-10-24 13:23] LABS: Troponin, Point-of-Care* 0.02 ng/ml (0.01-0.04)
[2024-10-24 13:31] LABS: Albumin* 4.2 g/dL (3.3-5.0); Chloride* 105 mmol/L (96-114)
[2024-10-24 13:32] LABS: Potassium* 3.8 mmol/L (3.6-5.1); Sodium* 141 mmol/L (135-149)
[2024-10-24 13:34] LABS: Alanine Aminotransferase* 12 U/L (4-35); Anion Gap 8 mEq/L (7-15); Aspartate Amino Transferase* 23 U/L (12-35); Blood Urea Nitrogen* 18 mg/dL (7-30); Carbon Dioxide* 28 mmol/L (20-32); Creatinine* 0.6 mg/dL (0.5-1.5); Est. Creatinine Clearance* 30.62; Estimated Glomerular Filt Rate 89 ml/min
[2024-10-24 13:35] LABS: Alkaline Phosphatase* 54 U/L (40-150); Calcium* 9.5 mg/dL (8.4-10.6); Glucose* 99 mg/dL (60-115); Total Protein* 7.2 g/dL (6.0-8.3)
[2024-10-24 14:04] LABS: NT Pro B Type NatriureticPept* 1490 pg/mL
[2024-10-24 14:07] VITALS: BP 125/97; BP 132/86; BP 140/78; PULSE 102; PULSE 103; PULSE 106
== END 2024-10-24 16:08 | disposition home or self-care (01) ==
LOC: ED 16:11
PROVIDERS: Emergency Provider Student in an Organized Health Care Education/Training Program; PCP Family Medicine
DX: R42 Dizziness and giddiness (principal); I48.0 Paroxysmal atrial fibrillation
CPT/HCPCS: 36415; 80053; 83880; 84443; 84484; 85025; 93005; 99283; 99284; A9270; J7050

== ENCOUNTER 2024-11-07 14:39 | Outpatient (RCR) | payer MEDICARE, BC, SELFPAY | END 2025-05-06 23:59 | disposition home or self-care (01) | LOC: CCIC 14:39 | PROVIDERS: PCP Family Medicine; Visit Provider Internal Medicine Hematology & Oncology | DX: C50.912 Malignant neoplasm of unspecified site of left female breast (principal); Z17.0 Estrogen receptor positive status [ER+]; Z79.811 Long term (current) use of aromatase inhibitors; M85.80 Other specified disorders of bone density and structure, unspecified site; I49.9 Cardiac arrhythmia, unspecified; R42 Dizziness and giddiness; Z79.01 Long term (current) use of anticoagulants | CPT/HCPCS: 99215; G0463 ==